=== PATIENT | female | born 1990 | race Caucasian/White ===

== ENCOUNTER 2016-12-21 17:35 | Day surgery (SDC) | payer BC, MEDICAID ==
[2016-12-21] MEDS ORDERED: Sodium Chloride 0.9% 10 ML Syringe FLUSH PRN (18:24)
--- NOTE | 2016-12-21 19:13 | EDM.PDOC ---
ED HPI GENERAL MEDICAL PROBLEM - General Chief Complaint: Gastrointestinal Problem Stated Complaint: ABDOMINAL PAIN, BLOOD IN STOOL Time Seen by Provider: 12/21/16 18:14 Source of Information: Reports: Patient History Limitations: Reports: No Limitations - History of Present Illness INITIAL COMMENTS - FREE TEXT/NARRATIVE: 26-year-old female presents for evaluation and treatment of abdominal pain. Reports abdominal pain as the last 2-3 days. States it is located on her right lower abdomen and her left upper abdomen. She states that the pain is currently an 8/10 and is a sharp stabbing that waxes and wanes. She reports associated symptoms of decreased appetite, bloating, lightheadedness and nausea. Patient reports she made a appointment with her primary care provider today. Schedule this for tomorrow. She became concerned today when she had a bloody stool this morning and second bloody stool while at work today. She denies any fevers, chills, vomiting, dysuria or hematuria. No surgeries to her abdomen. The recent travel. No ill contacts. Does not recall her last period has an IUD in place. She has had some spotting. Last intake around 1300. Lower Abdomen Pain Score (Numeric/FACES): 8 - Related Data Allergies Allergy/AdvReac Type Severity Reaction Status Date / Time No Known Allergies Allergy Verified 12/21/16 17:50 Home Meds: Home Meds . [No Known Home Meds] 12/21/16 [History] Past Medical History Gastrointestinal History: Reports: Other (See Below) Other Gastrointestinal History: "slight hernia" Psychiatric History: Reports: Anxiety, Depression - Past Surgical History GI Surgical History: Reports: Colonoscopy Social & Family History - Tobacco Use Smoking Status *Q: Light Tobacco Smoker Years of Tobacco use: 3 Packs/Tins Daily: 0.1 - Caffeine Use Caffeine Use: Reports: Soda - Recreational Drug Use Recreational Drug Use: No - Living Situation & Occupation Occupation: Employed ED ROS GENERAL - Review of Systems Review Of Systems: See Below Constitutional: Reports: Decreased Appetite. Denies: Fever, Chills GI/Abdominal: Reports: Abdominal Pain (RLQ and LUQ), Bloody Stool, Decreased Appetite, Nausea. Denies: Diarrhea, Vomiting : Reports: No Symptoms. Denies: Dysuria ED EXAM, GI/ABD - Physical Exam Exam: See Below Exam Limited By: No Limitations General Appearance: Alert, WD/WN, No Apparent Distress Respiratory/Chest: No Respiratory Distress, Lungs Clear, Normal Breath Sounds Cardiovascular: Normal Peripheral Pulses, Regular Rate, Rhythm, No Murmur GI/Abdominal: Normal Bowel Sounds, Soft, Tenderness (RLQ), Guarding, McBurney's Sign, Psoas Sign, Obturator Sign, Other (minor pain with heel percussion). No: Rebound Rectal (Female) Exam: Normal Rectal Tone, Heme + Stool Neurological: Alert, Oriented, Normal Cognition Psychiatric: Normal Affect, Normal Mood Skin Exam: Warm, Dry, Normal Color Course - Vital Signs Last Recorded V/S: Last Vital Signs Temp 36.3 C 12/21/16 21:49 Pulse 71 12/21/16 21:49 Resp 16 12/21/16 21:49 BP 121/71 12/21/16 21:49 Pulse Ox 99 12/21/16 21:49 - Orders/Labs/Meds Orders: Active Orders 24 hr Category Date Time Status Patient Status [ADT] Routine ADT 12/21/16 21:59 Active Peripheral IV Care [RC] . DIRECTED Care 12/21/16 18:24 Active Sodium Chloride 0.9% [Saline Flush] Med 12/21/16 18:24 Active 10 ml FLUSH ASDIRECTED PRN Peripheral IV Insertion Adult [OM.PC] Routine Oth 12/21/16 18:22 Ordered Schedule Procedure [COMM] Routine Oth 12/21/16 21:54 Ordered Medication Orders Sodium Chloride (Saline Flush) 10 ml FLUSH ASDIRECTED PRN PRN Reason: Keep Vein Open Last Admin: 12/21/16 18:49 Dose: 10 ml Labs: Laboratory Tests 12/21/16 12/21/16 12/21/16 Range/Units 18:50 18:50 19:41 WBC (3.98-10.04) K/mm3 RBC (3.98-5.22) M/mm3 Hgb (11.2-15.7) gm/L Hct (34.1-44.9) % MCV (79.4-94.8) fl MCH (25.6-32.2) pg MCHC (32.2-35.5) g/dl RDW Std Deviation (36.4-46.3) fL Plt Count (182-369) K/mm3 MPV (9.4-12.3) fl Neut % (Auto) (34.0-71.1) % Lymph % (Auto) (19.3-51.7) % Cole % (Auto) (4.7-12.5) % Eos % (Auto) (0.7-5.8) Baso % (Auto) (0.1-1.2) % Neut # (Auto) (1.56-6.13) K/mm3 Lymph # (Auto) (1.18-3.74) K/mm3 Cole # (Auto) (0.24-0.36) K/mm3 Eos # (Auto) (0.04-0.36) K/mm3 Baso # (Auto) (0.01-0.08) K/mm3 Sodium 139 (136-145) mEq/L Potassium 3.8 (3.5-5.1) mEq/L Chloride 105 (98-107) mEq/L Carbon Dioxide 26 (21-32) mEq/L Anion Gap 11.8 (5-15) BUN 13 (7-18) mg/dL Creatinine 0.9 (0.55-1.02) mg/dL Est Cr Clr Drug Dosing 89.45 mL/min Estimated GFR (MDRD) > 60 (>60) mL/min BUN/Creatinine Ratio 14.4 (14-18) Glucose 85 (74-106) mg/dL Calcium 9.8 (8.5-10.1) mg/dL Total Bilirubin 0.6 (0.2-1.0) mg/dL AST 23 (15-37) U/L ALT 24 (14-59) U/L Alkaline Phosphatase 111 (46-116) U/L C-Reactive Protein 2.0 H* (<1.0) mg/dL Total Protein 9.1 H (6.4-8.2) g/dl Albumin 4.1 (3.4-5.0) g/dl Globulin 5.0 gm/dL Albumin/Globulin Ratio 0.8 L (1-2) HCG, Qual Negative (NEGATIVE) Urine Color Yellow (Yellow) Urine Appearance Clear (Clear) Urine pH 6.5 (5.0-8.0) Ur Specific [place] 1.015 (1.005-1.030) Urine Protein Negative (Negative) Urine Glucose (UA) Negative (Negative) Urine Ketones Negative (Negative) Urine Occult Blood Negative (Negative) Urine Nitrite Negative (Negative) Urine Bilirubin Negative (Negative) Urine Urobilinogen 0.2 (0.2-1.0) Ur Leukocyte Esterase Negative (Negative) Urine RBC Not seen (0-5) /hpf Urine WBC Not seen (0-5) /hpf Ur Epithelial Cells 0-5 (0-5) /hpf Urine Bacteria Rare (FEW) /hpf Urine Mucus Not seen (FEW) /hpf 12/21/16 Range/Units 19:44 WBC 10.17 H (3.98-10.04) K/mm3 RBC 5.26 H (3.98-5.22) M/mm3 Hgb 14.8 (11.2-15.7) gm/L Hct 44.7 (34.1-44.9) % MCV 85.0 (79.4-94.8) fl MCH 28.1 (25.6-32.2) pg MCHC 33.1 (32.2-35.5) g/dl RDW Std Deviation 41.0 (36.4-46.3) fL Plt Count 403 H (182-369) K/mm3 MPV 9.8 (9.4-12.3) fl Neut % (Auto) 56.6 (34.0-71.1) % Lymph % (Auto) 34.6 (19.3-51.7) % Cole % (Auto) 5.6 (4.7-12.5) % Eos % (Auto) 2.7 (0.7-5.8) Baso % (Auto) 0.5 (0.1-1.2) % Neut # (Auto) 5.76 (1.56-6.13) K/mm3 Lymph # (Auto) 3.52 (1.18-3.74) K/mm3 Cole # (Auto) 0.57 H (0.24-0.36) K/mm3 Eos # (Auto) 0.27 (0.04-0.36) K/mm3 Baso # (Auto) 0.05 (0.01-0.08) K/mm3 Sodium (136-145) mEq/L Potassium (3.5-5.1) mEq/L Chloride (98-107) mEq/L Carbon Dioxide (21-32) mEq/L Anion Gap (5-15) BUN (7-18) mg/dL Creatinine (0.55-1.02) mg/dL Est Cr Clr Drug Dosing mL/min Estimated GFR (MDRD) (>60) mL/min BUN/Creatinine Ratio (14-18) Glucose (74-106) mg/dL Calcium (8.5-10.1) mg/dL Total Bilirubin (0.2-1.0) mg/dL AST (15-37) U/L ALT (14-59) U/L Alkaline Phosphatase (46-116) U/L C-Reactive Protein (<1.0) mg/dL Total Protein (6.4-8.2) g/dl Albumin (3.4-5.0) g/dl Globulin gm/dL Albumin/Globulin Ratio (1-2) HCG, Qual (NEGATIVE) Urine Color (Yellow) Urine Appearance (Clear) Urine pH (5.0-8.0) Ur Specific [place] (1.005-1.030) Urine Protein (Negative) Urine Glucose (UA) (Negative) Urine Ketones (Negative) Urine Occult Blood (Negative) Urine Nitrite (Negative) Urine Bilirubin (Negative) Urine Urobilinogen (0.2-1.0) Ur Leukocyte Esterase (Negative) Urine RBC (0-5) /hpf Urine WBC (0-5) /hpf Ur Epithelial Cells (0-5) /hpf Urine Bacteria (FEW) /hpf Urine Mucus (FEW) /hpf Meds: Medications Generic Name Dose Route Start Last Admin Trade Name Freq PRN Reason Stop Dose Admin Sodium Chloride 10 ml 12/21/16 18:24 12/21/16 18:49 Saline Flush FLUSH 10 ml ASDIRECTED PRN Administration Keep Vein Open Discontinued Medications Generic Name Dose Route Start Last Admin Trade Name Freq PRN Reason Stop Dose Admin Bupivacaine HCl Confirm 12/21/16 21:30 Marcaine 0.5% Administered 12/21/16 21:31 Dose 30 ml .ROUTE .STK-MED ONE Diatrizoate Meglum/Diatrizoate Sod 90 ml 12/21/16 19:46 12/21/16 20:00 Gastrografin 37% PO 12/21/16 19:47 90 ml ONETIME ONE Administration Fentanyl Confirm 12/21/16 21:48 Sublimaze Administered 12/21/16 21:49 Dose 250 mcg .ROUTE .STK-MED ONE Hydromorphone HCl 1 mg 12/21/16 20:53 12/21/16 21:03 Dilaudid IVPUSH 12/21/16 20:54 1 mg ONETIME ONE Administration Sodium Chloride 1,000 mls @ 999 mls/hr 12/21/16 21:02 12/21/16 21:14 Normal Saline IV 12/21/16 22:02 999 mls/hr ONETIME ONE Administration Cefoxitin Sodium 2 gm/ Premix 50 mls @ 100 mls/hr 12/21/16 21:02 12/21/16 21: 14 IV 12/21/16 21:31 100 mls/hr ONETIME ONE Administration Iopamidol 125 ml 12/21/16 19:46 12/21/16 20:00 Isovue-300 (61%) IVPUSH 12/21/16 19:47 110 ml ONETIME ONE Administration Midazolam HCl Confirm 12/21/16 21:48 Versed 1 Mg/Ml Administered 12/21/16 21:49 Dose 2 mg .ROUTE .STK-MED ONE Ondansetron HCl 4 mg 12/21/16 20:52 12/21/16 21:07 Zofran IVPUSH 12/21/16 20:53 4 mg ONETIME ONE Administration Ondansetron HCl Confirm 12/21/16 21:48 Zofran Administered 12/21/16 21:49 Dose 4 mg .ROUTE .STK-MED ONE Propofol Confirm 12/21/16 21:48 Diprivan 20 Ml Administered 12/21/16 21:49 Dose 200 mg .ROUTE .STK-MED ONE Rocuronium [place] Confirm 12/21/16 21:48 Zemuron Administered 12/21/16 21:49 Dose 50 mg .ROUTE .STK-MED ONE Sodium Chloride 10 ml 12/21/16 19:46 12/21/16 20:01 Saline Flush FLUSH 12/21/16 19:47 10 ml ONETIME ONE Administration - Radiology Interpretation Free Text/Narrative:: CT of the abdomen and pelvis impression per Dr. Galvan: 1. Slightly prominent appendix with very minimal inflammatory change suggesting but not conclusive for very early appendicitis. Please correlate if this matches patient's clinical symptoms. 2. Other portions of the CT exam of the abdomen and pelvis are unremarkable with other incidental findings. CT Results Date: 12/21/16 - Re-Assessments/Exams Free Text/Narrative Re-Assessment/Exam: 12/21/16 22:05 Labs returned. White blood cell count is mildly elevated at 10.17, hemoglobin is 14.8, plts are 239. Sodium is 139, potassium is 3.8 chloride is 105. Anion gap is 11.8. CRP is 2.0. HCG is negative. UA is unremarkable. I discussed the labs and CT results with patient. I discussed the case with Dr. Sauceda, surgeon application developer manager. He will come and evaluate the patient in the ER. Asked we start cefoxitin IV, asked we call The OR crew. Plan will be to take the patient to the OR for an appendectomy. Departure - Departure Time of Disposition: 22:00 Disposition: Refer to Observation Condition: fair Clinical Impression: Appendicitis - Discharge Information Referrals: Roselyn Warren PA [Primary Care Provider] - Forms: ED Department Discharge Additional Instructions: Patient to be taken to the OR under Dr. Sauceda for an appendectomy. - My Orders Last 24 Hours: My Active Orders 12/21/16 18:22 Peripheral IV Insertion Adult [OM.PC] Routine 12/21/16 18:24 Peripheral IV Care [RC] . DIRECTED Sodium Chloride 0.9% [Saline Flush] 10 ml FLUSH ASDIRECTED PRN 12/21/16 21:59 Patient Status [ADT] Routine - Assessment/Plan Last 24 Hours: My Active Orders 12/21/16 18:22 Peripheral IV Insertion Adult [OM.PC] Routine 12/21/16 18:24 Peripheral IV Care [RC] . DIRECTED Sodium Chloride 0.9% [Saline Flush] 10 ml FLUSH ASDIRECTED PRN 12/21/16 21:59 Patient Status [ADT] Routine
[2016-12-21] MEDS ORDERED: Diatrizoate Meglumine/Diatrizoate Sodium 37% 120 ML Bottle PO ONE (19:46)
[2016-12-21] MEDS ORDERED: Sodium Chloride 0.9% 10 ML Syringe FLUSH ONE (19:46)
[2016-12-21] MEDS ORDERED: Iopamidol 612 MG/ML 150 ML Bottle IVPUSH ONE (19:46)
--- NOTE | 2016-12-21 20:32 | CT ---
CT abdomen and pelvis Technique: Multiple axial sections from above the dome of the diaphragm inferiorly through the pubic symphysis were obtained. Intravenous and oral contrast was utilized. Delayed images were also obtained through the bladder. Findings: Appendix is slightly prominent in size measuring around 9 mm. Very minimal inflammatory change is suggested around the appendix. Very early appendicitis is possible if patient has correlating clinical symptoms. Visualized lung bases shows nothing acute. Liver and spleen appear within normal limits. Adrenal glands show no nodule. Pancreas is within normal limits. Gallbladder shows no calcified gallstones. Kidneys show symmetric contrast enhancement without hydronephrosis or mass. Delayed images shows contrast within the distal ureters and bladder. Aorta shows no aneurysmal dilatation. No retroperitoneal adenopathy is seen. Slightly prominent lymph nodes are seen within the right lower mesentery. No pelvic mass or adenopathy is seen. IUD is present within the uterus. Bone window settings were reviewed which appears within normal limits for the patient's age. Impression: 1. Slightly prominent appendix with very minimal inflammatory change suggesting but not conclusive for very early appendicitis. Please correlate if this matches patient's clinical symptoms. 2. Other portions of the CT exam of the abdomen and pelvis are unremarkable with other incidental findings as noted above. Diagnostic code #5
[2016-12-21] MEDS ORDERED: Ondansetron 4 MG/2 ML SDV IVPUSH ONE (20:52)
[2016-12-21] MEDS ORDERED: HYDROmorphone 1 MG/ML Syringe IVPUSH ONE (20:53)
[2016-12-21] MEDS ORDERED: Sodium Chloride 0.9% 1,000 ML IV ONE (21:02)
[2016-12-21] MEDS ORDERED: cefOXitin 2 GM in Premix Bag 1 BAG IV ONE (21:02)
[2016-12-21] MEDS ORDERED: Bupivacaine 0.5% 30 ML SDV ONE (21:30)
[2016-12-21] MEDS ORDERED: Rocuronium 50 MG/5 ML Vial ONE (21:48)
[2016-12-21] MEDS ORDERED: Ondansetron 4 MG/2 ML SDV ONE (21:48)
[2016-12-21] MEDS ORDERED: fentaNYL 250 MCG/5 ML SDV ONE (21:48)
[2016-12-21] MEDS ORDERED: Midazolam 1 MG/ML 2 ML SDV ONE (21:48)
[2016-12-21] MEDS ORDERED: Propofol 200 MG/20 ML SDV ONE (21:48)
--- NOTE | 2016-12-21 21:49 | PCM.PREANE ---
Preanesthetic Assessment - Anesthesia/Transfusion/Family Hx Anesthesia History: Prior Anesthesia Without Reaction Family History of Anesthesia Reaction: No Transfusion History: No Prior Transfusion(s) - Review of Systems General: Fatigue Pulmonary: No Symptoms Cardiovascular: No Symptoms Gastrointestinal: Abdominal pain Neurological: No Symptoms Other: Reports: None - Physical Assessment NPO Status Date: 12/21/16 NPO Status Time: 13:00 Pulse: 71 O2 Sat by Pulse Oximetry: 99 Respiratory Rate: 16 Blood Pressure: 121/71 Temperature: 36.3 C Vital Signs: Last Vital Signs Temp 36.3 C 12/21/16 17:44 Pulse 71 12/21/16 17:44 Resp 16 12/21/16 17:44 BP 121/71 12/21/16 17:44 Pulse Ox 99 12/21/16 17:44 Height: 1.68 m Weight: 102.058 kg ASA Class: 2 Mental Status: Alert & Oriented x3 Airway Class: Mallampati = 1 Dentition: Reports: Normal Dentition Thyro-Mental Finger Breadths: 3 Mouth Opening Finger Breadths: 3 ROM/Head Extension: Full Lungs: Clear to auscultation, Normal respiratory effort Cardiovascular: Regular Rate, Regular Rhythm, No Murmurs - Lab Values: Laboratory Last Values WBC 10.17 K/mm3 (3.98-10.04) H 12/21/16 19:44 RBC 5.26 M/mm3 (3.98-5.22) H 12/21/16 19:44 Hgb 14.8 gm/L (11.2-15.7) 12/21/16 19:44 Hct 44.7 % (34.1-44.9) 12/21/16 19:44 MCV 85.0 fl (79.4-94.8) 12/21/16 19:44 MCH 28.1 pg (25.6-32.2) 12/21/16 19:44 MCHC 33.1 g/dl (32.2-35.5) 12/21/16 19:44 RDW Std Deviation 41.0 fL (36.4-46.3) 12/21/16 19:44 Plt Count 403 K/mm3 (182-369) H 12/21/16 19:44 MPV 9.8 fl (9.4-12.3) 12/21/16 19:44 Neut % (Auto) 56.6 % (34.0-71.1) 12/21/16 19:44 Lymph % (Auto) 34.6 % (19.3-51.7) 12/21/16 19:44 [place] % (Auto) 5.6 % (4.7-12.5) 12/21/16 19:44 Eos % (Auto) 2.7 (0.7-5.8) 12/21/16 19:44 Baso % (Auto) 0.5 % (0.1-1.2) 12/21/16 19:44 Neut # (Auto) 5.76 K/mm3 (1.56-6.13) 12/21/16 19:44 Lymph # (Auto) 3.52 K/mm3 (1.18-3.74) 12/21/16 19:44 [place] # (Auto) 0.57 K/mm3 (0.24-0.36) H 12/21/16 19:44 Eos # (Auto) 0.27 K/mm3 (0.04-0.36) 12/21/16 19:44 Baso # (Auto) 0.05 K/mm3 (0.01-0.08) 12/21/16 19:44 Sodium 139 mEq/L (136-145) 12/21/16 18:50 Potassium 3.8 mEq/L (3.5-5.1) 12/21/16 18:50 Chloride 105 mEq/L (98-107) 12/21/16 18:50 Carbon Dioxide 26 mEq/L (21-32) 12/21/16 18:50 Anion Gap 11.8 (5-15) 12/21/16 18:50 BUN 13 mg/dL (7-18) 12/21/16 18:50 Creatinine 0.9 mg/dL (0.55-1.02) 12/21/16 18:50 Est Cr Clr Drug Dosing 89.45 mL/min 12/21/16 18:50 Estimated GFR (MDRD) > 60 mL/min (>60) 12/21/16 18:50 BUN/Creatinine Ratio 14.4 (14-18) 12/21/16 18:50 Glucose 85 mg/dL (74-106) 12/21/16 18:50 Calcium 9.8 mg/dL (8.5-10.1) 12/21/16 18:50 Total Bilirubin 0.6 mg/dL (0.2-1.0) 12/21/16 18:50 AST 23 U/L (15-37) 12/21/16 18:50 ALT 24 U/L (14-59) 12/21/16 18:50 Alkaline Phosphatase 111 U/L (46-116) 12/21/16 18:50 C-Reactive Protein 2.0 mg/dL (<1.0) H* 12/21/16 18:50 Total Protein 9.1 g/dl (6.4-8.2) H 12/21/16 18:50 Albumin 4.1 g/dl (3.4-5.0) 12/21/16 18:50 Globulin 5.0 gm/dL 12/21/16 18:50 Albumin/Globulin Ratio 0.8 (1-2) L 12/21/16 18:50 HCG, Qual Negative (NEGATIVE) 12/21/16 18:50 Urine Color Yellow (Yellow) 12/21/16 19:41 Urine Appearance Clear (Clear) 12/21/16 19:41 Urine pH 6.5 (5.0-8.0) 12/21/16 19:41 Ur Specific [place] 1.015 (1.005-1.030) 12/21/16 19:41 Urine Protein Negative (Negative) 12/21/16 19:41 Urine Glucose (UA) Negative (Negative) 12/21/16 19:41 Urine Ketones Negative (Negative) 12/21/16 19:41 Urine Occult Blood Negative (Negative) 12/21/16 19:41 Urine Nitrite Negative (Negative) 12/21/16 19:41 Urine Bilirubin Negative (Negative) 12/21/16 19:41 Urine Urobilinogen 0.2 (0.2-1.0) 12/21/16 19:41 Ur Leukocyte Esterase Negative (Negative) 12/21/16 19:41 Urine RBC Not seen /hpf (0-5) 12/21/16 19:41 Urine WBC Not seen /hpf (0-5) 12/21/16 19:41 Ur Epithelial Cells 0-5 /hpf (0-5) 12/21/16 19:41 Urine Bacteria Rare /hpf (FEW) 12/21/16 19:41 Urine Mucus Not seen /hpf (FEW) 12/21/16 19:41 - Allergies Allergies/Adverse Reactions: Allergies Allergy/AdvReac Type Severity Reaction Status Date / Time No Known Allergies Allergy Verified 12/21/16 17:50 - Blood Blood Available: No Product(s) Available: None - Acknowledgements Anesthesia Type Planned: General Anesthesia Pt an Appropriate Candidate for the Planned Anesthesia: Yes Alternatives and Risks of Anesthesia Discussed w Pt/Guardian: Yes Pt/Guardian Understands and Agrees with Anesthesia Plan: Yes PreAnesthesia Questionnaire Gastrointestinal History: Reports: Other (See Below) Other Gastrointestinal History: "slight hernia" Psychiatric History: Reports: Anxiety, Depression - Past Surgical History GI Surgical History: Reports: Colonoscopy - SUBSTANCE USE Smoking Status *Q: Light Tobacco Smoker Tobacco Use Within Last Twelve Months: Cigarettes Second Hand Smoke Exposure: Yes Days Per Week of Alcohol Use: 1 Number of Drinks Per Day: 1 Total Drinks Per Week: 1 Recreational Drug Use History: No - HOME MEDS Home Medications: Home Meds . [No Known Home Meds] 12/21/16 [History] - CURRENT (IN HOUSE) MEDS Current Meds: Current Medications Sodium Chloride (Normal Saline) 1,000 mls @ 999 mls/hr IV ONETIME ONE Stop: 12/21/16 22:02 Last Admin: 12/21/16 21:14 Dose: 999 mls/hr Sodium Chloride (Saline Flush) 10 ml FLUSH ASDIRECTED PRN PRN Reason: Keep Vein Open Last Admin: 12/21/16 18:49 Dose: 10 ml Discontinued Medications Bupivacaine HCl (Marcaine 0.5%) Confirm Administered Dose 30 ml .ROUTE .STK-MED ONE Stop: 12/21/16 21:31 Diatrizoate Meglum/Diatrizoate Sod (Gastrografin 37%) 90 ml PO ONETIME ONE Stop: 12/21/16 19:47 Last Admin: 12/21/16 20:00 Dose: 90 ml Fentanyl (Sublimaze) Confirm Administered Dose 250 mcg .ROUTE .STK-MED ONE Stop: 12/21/16 21:49 Hydromorphone HCl (Dilaudid) 1 mg IVPUSH ONETIME ONE Stop: 12/21/16 20:54 Last Admin: 12/21/16 21:03 Dose: 1 mg Cefoxitin Sodium 2 gm/ Premix 50 mls @ 100 mls/hr IV ONETIME ONE Stop: 12/21/16 21:31 Last Admin: 12/21/16 21:14 Dose: 100 mls/hr Iopamidol (Isovue-300 (61%)) 125 ml IVPUSH ONETIME ONE Stop: 12/21/16 19:47 Last Admin: 12/21/16 20:00 Dose: 110 ml Midazolam HCl (Versed 1 Mg/Ml) Confirm Administered Dose 2 mg .ROUTE .STK-MED ONE Stop: 12/21/16 21:49 Ondansetron HCl (Zofran) 4 mg IVPUSH ONETIME ONE Stop: 12/21/16 20:53 Last Admin: 12/21/16 21:07 Dose: 4 mg Ondansetron HCl (Zofran) Confirm Administered Dose 4 mg .ROUTE .STK-MED ONE Stop: 12/21/16 21:49 Propofol (Diprivan 20 Ml) Confirm Administered Dose 200 mg .ROUTE .STK-MED ONE Stop: 12/21/16 21:49 Rocuronium [place] (Zemuron) Confirm Administered Dose 50 mg .ROUTE .STK-MED ONE Stop: 12/21/16 21:49 Sodium Chloride (Saline Flush) 10 ml FLUSH ONETIME ONE Stop: 12/21/16 19:47 Last Admin: 12/21/16 20:01 Dose: 10 ml
[2016-12-21] MEDS ORDERED: Lactated Ringers 1,000 ML ONE (23:13)
--- NOTE | 2016-12-21 23:23 | PCM.OPNOTE ---
- General Post-Op/Procedure Note Date of Surgery/Procedure: 12/21/16 Operative Procedure(s): lap gissell Findings: acute appendicitis Pre Op Diagnosis: acute appendicitis Post-Op Diagnosis: Same Anesthesia Technique: General ET tube Primary Surgeon: Giovani Sauceda EBL in mLs: 10 Complications: None Condition: Good
[2016-12-21] MEDS ORDERED: fentaNYL 250 MCG/5 ML SDV IVPUSH PRN (23:28)
--- NOTE | 2016-12-21 23:30 | PCM.POSTAN ---
POST ANESTHESIA ASSESSMENT - MENTAL STATUS Mental Status: somnolent - VITAL SIGNS Pulse Rate: 100 SaO2: 98 Resp Rate: 16 Blood Pressure: 125/84 Temperature: 36.6 C - RESPIRATORY Respiratory Status: respiratory rate WNL, airway patent, O2 saturation stable, supplemental oxygen - CARDIOVASCULAR CV Status: pulse rate WNL, blood pressure stable - GASTROINTESTINAL GI Status: no symptoms - PAIN Pain Score: 0 - POST OP HYDRATION Hydration Status: adequate & stable - OBSERVATIONS Free Text/Narrative:: no anesthetic complications noted
[2016-12-21] MEDS: HYDROmorphone 0.5 MG/0.5 ML Syringe IVPUSH PRN ×2 (23:39→23:55)
[2016-12-21] MEDS ORDERED: fentaNYL 100 MCG/2 ML SDV ONE ×2 (23:42→23:58)
[2016-12-21] MEDS ORDERED: LORazepam 2 MG/ML MDV IVPUSH SCH (23:45)
[2016-12-22] MEDS ORDERED: Acetaminophen/HYDROcodone 325-5 MG Tab PO SCH
[2016-12-22] MEDS ORDERED: Ketorolac 30 MG/ML SDV IVPUSH ONE (02:15)
[2016-12-22] MEDS ORDERED: Acetaminophen/HYDROcodone 325-5 MG Tab PO PRN (07:53)
[2016-12-22 08:22] VITALS: BP 105/60
--- NOTE | 2016-12-22 09:03 | OR ---
DATE OF OPERATION: 12/21/2016 SURGEON: Giovani Sauceda MD PREOPERATIVE DIAGNOSIS: Acute appendicitis. POSTOPERATIVE DIAGNOSIS: Acute appendicitis. PROCEDURE: Laparoscopic appendectomy done under general anesthetic. FINDINGS: Inflamed tip of the appendix without any serious reaction. There was no peritoneal reaction around the appendix. ESTIMATED BLOOD LOSS: 10 mL. DESCRIPTION OF PROCEDURE: The patient taken to operating room for an emergency procedure from the emergency room, placed in a supine position, given the general anesthetic and intubated. SCDs were placed. Antibiotics were given and the abdomen was prepped with DuraPrep and draped off in a sterile fashion. Incision was made just below the umbilicus, carried down by sharp dissection to the fascia. This was incised, abdominal cavity entered. Thomas trocar was placed, secured with stay sutures and pneumoperitoneum established. The patient placed in reverse Trendelenburg with leftward tilt showing an inflamed appendix in the right lower quadrant. A 5-mm trocar placed in the epigastric right upper quadrant, 1 in the right lower quadrant and the grabbers were placed through these ports and the appendix was mobilized. A window was placed at the base of the cecum and mesoappendix and Ethicon endo ligator was used to separate the appendix from the cecum. Another firing of the Endo ligator the appendix from the mesoappendix, it was placed in an Endobag and removed from the abdominal cavity and sent to pathology. The camera and pneumoperitoneum re-established and the area was irrigated, excellent hemostasis was noted. This completed the intraabdominal portion of the procedure. Pneumoperitoneum was removed and the fascia of the subumbilical port closed with a running 0 Vicryl suture and the skin of each port closed with subdermal 4-0 Dexon suture. Steri-Strips and sterile dressing placed. The patient tolerated the procedure and sent to recovery room in a stable condition. OPERATION PERFORMED: ANESTHESIA: MMODAL /[id number]
--- NOTE | 2016-12-22 09:03 | HP ---
DATE OF ADMISSION: 12/21/2016 HISTORY OF PRESENT ILLNESS: This is a 26-year-old, who comes in with abdominal pain, it started 3 days ago when it was periumbilical and the 2nd day, it rotated to both sides and gradually tended to be more on the right side. The 3rd day, she was having 3 bloody bowel movements and last one was at 1600 hours and since then has not had any, but brought her into the emergency room where a CT scan showed early appendicitis. She has had poor appetite for the last 3 days. Last time she ate was at 1300 hours. The patient describes the pain as a sharp pain, which seems to be worsening. 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 Her grandfather and father both had stomach and gastric cancers. She has had a colonoscopy about a year and a half ago, not sure what was noted. She does smoke occasionally take alcohol but no use of marijuana. ALLERGIES: No known allergies. CURRENT MEDICATIONS: None. REVIEW OF SYSTEMS: No chest pain, shortness of breath, cough, hoarseness, wheezing, fainting, weakness, numbness, convulsions, nausea, vomiting, but does have a poor appetite. LABORATORY DATA: Shows a slightly elevated white count about 10.2 and elevated CPR. Urinalysis is unremarkable and test is negative. She has not had her period and has an IUD. PHYSICAL EXAMINATION: GENERAL: Reveals alert, cooperative, female. VITAL SIGNS: Shows a pulse is regular at 71, temperature 97.3, blood pressure 121/71. HEENT: Eyes sclerae white. Extraocular muscle motion normal. Oral cavity, healthy coated tongue was noted. NECK: Supple. No nodes. No thyromegaly. LUNGS: Clear. No rales, rhonchi, fremitus, or dullness. HEART: Tones regular rate. No S3, S4, jugular venous distention or murmurs. ABDOMEN : Shows tenderness in McBurney's point with slight guarding on deep palpation. EXTREMITIES: Upper and lower extremities, no angulation deformities. SKIN: Warm and dry. Neurologic exam no sensorineural deficit. Cranial nerves 3-12 is intact. EXTREMITIES: Upper and lower extremities, no angulation deformities or motor deficit. ASSESSMENT: 1. Rectal bleeding and history of Ruiz syndrome, needs to be worked up later. 2. Acute appendicitis. PLAN: Laparoscopic appendectomy. Risks and complications of this procedure was discussed, patient understands and consents. MMMIGUEL /[id number]
== END 2016-12-22 09:25 | disposition home or self-care (01) ==
LOC: JD.ED 17:35 → JD.SDS 21:54
PROVIDERS: ATTEND Surgery
DX: K35.3 Acute appendicitis with localized peritonitis (principal); K62.5 Hemorrhage of anus and rectum; F41.8 Other specified anxiety disorders; F17.210 Nicotine dependence, cigarettes, uncomplicated
CPT/HCPCS: 36415; 44970; 74177; 80053; 81001; 84703; 85025; 86140; 88304; 96365; 96375; 99285; A9270; J0694; J1170; J1885; J2060; J2250; J2405; J3010; J7040; J7050; J7120; Q9963; Q9967; 00840; 99284; J2704

== ENCOUNTER 2017-03-27 17:41 | Emergency (ER) | payer BC ==
[2017-03-27 17:54] VITALS: BP 115/74
[2017-03-27] MEDS ORDERED: Alum Hydrox/Mag Hydrox/Simeth 30 ML, Lidocaine 2% 15 ML PO ONE ×2 (20:14)
--- NOTE | 2017-03-27 20:16 | EDM.PDOC ---
ED HPI GENERAL MEDICAL PROBLEM - General Chief Complaint: Abdominal Pain Stated Complaint: ABDOMINAL PAIN Time Seen by Provider: 03/27/17 18:18 Source of Information: Reports: Patient, Old Records History Limitations: Reports: No Limitations - History of Present Illness INITIAL COMMENTS - FREE TEXT/NARRATIVE: 26 year old female presents for evaluation treatment of abdominal pain. Patient reports the abdominal pain is located in the upper abdomen. She states it is been going on for the last week. She reports that it hurts to breathe. States that the pain is located in the upper abdomen and travels interiorly into her abdomen and into her back. Reports she gets shooting pains from her bellybutton. Reports the pain is worse after eating and describes a throbbing sensation after eating. Reports associated symptoms of decreased appetite and chest pain. She denies any nausea, vomiting, melena, hematochezia, diarrhea or constipation. Last bowel movement was yesterday. Patient reports recent travel of 3-4 weeks ago she traveled to [place]. Patient reports she is healthy. Not on any medications. Has chronic back problems. 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 Reports it has been about 2 years since her last EGD and colonscopy. Previous abdominal surgeries include an appendectomy. Patient also reports a significant amount of anxiety related to her current family situation. She recognizes that this could also be contributing to her abdominal pain. Abdominal Pain Score (Numeric/FACES): 8 - Related Data Allergies Allergy/AdvReac Type Severity Reaction Status Date / Time No Known Allergies Allergy Verified 03/27/17 17:54 Home Meds: Home Meds LORazepam [Ativan] 0.5 mg PO Q6HR PRN #7 tablet 03/27/17 [Rx] Past Medical History HEENT History: Reports: Impaired Vision Gastrointestinal History: Reports: Other (See Below) Other Gastrointestinal History: "slight hernia" Psychiatric History: Reports: Anxiety, Depression - Past Surgical History GI Surgical History: Reports: Appendectomy, Colonoscopy Social & Family History - Tobacco Use Smoking Status *Q: Current Every Day Smoker Years of Tobacco use: 10 Packs/Tins Daily: 0.5 Second Hand Smoke Exposure: Yes - Caffeine Use Caffeine Use: Reports: Coffee, Energy Drinks, Soda - Alcohol Use Days Per Week of Alcohol Use: 1 Number of Drinks Per Day: 1 Total Drinks Per Week: 1 - Recreational Drug Use Recreational Drug Use: No - Living Situation & Occupation Occupation: Employed ED ROS GENERAL - Review of Systems Review Of Systems: See Below Constitutional: Reports: Fatigue, Decreased Appetite. Denies: Fever Respiratory: Reports: Pleuritic Chest Pain Cardiovascular: Reports: Chest Pain GI/Abdominal: Reports: Abdominal Pain. Denies: Constipation, Diarrhea, Hematochezia, Melena, Nausea, Vomiting : Reports: No Symptoms Musculoskeletal: Reports: Back Pain Psychiatric: Reports: Anxiety ED EXAM, GI/ABD - Physical Exam Exam: See Below Exam Limited By: No Limitations General Appearance: Alert, WD/WN, No Apparent Distress Ears: Normal External Exam Nose: Normal Inspection Throat/Mouth: Normal Inspection, Normal Lips, No Airway Compromise Respiratory/Chest: No Respiratory Distress, Lungs Clear, Normal Breath Sounds Cardiovascular: Normal Peripheral Pulses, Regular Rate, Rhythm, No Murmur GI/Abdominal Exam: Normal Bowel Sounds, Soft, Tender (greatest in the epigastric area; also RUQ and LUQ). No: Guarding, Rebound Extremities: Normal Inspection Neurological: Alert, Oriented, Normal Cognition Psychiatric: Normal Affect, Normal Mood Skin Exam: Warm, Dry, Normal Color Course - Vital Signs Last Recorded V/S: Last Vital Signs Temp 36.5 C 03/27/17 17:51 Pulse 81 03/27/17 17:51 Resp 16 03/27/17 17:51 BP 115/74 03/27/17 17:51 Pulse Ox 98 03/27/17 17:51 - Orders/Labs/Meds Labs: Laboratory Tests 03/27/17 03/27/17 03/27/17 Range/Units 18:10 18:10 18:10 WBC 7.23 (3.98-10.04) K/mm3 RBC 4.81 (3.98-5.22) M/mm3 Hgb 13.3 (11.2-15.7) gm/L Hct 40.7 (34.1-44.9) % MCV 84.6 (79.4-94.8) fl MCH 27.7 (25.6-32.2) pg MCHC 32.7 (32.2-35.5) g/dl RDW Std Deviation 40.6 (36.4-46.3) fL Plt Count 344 (182-369) K/mm3 MPV 9.5 (9.4-12.3) fl Neutrophils % (Manual) 68 H (40-60) % Band Neutrophils % 1 (0-10) % Lymphocytes % (Manual) 23 (20-40) % Atypical Lymphs % 4 % Monocytes % (Manual) 3 (2-10) % Eosinophils % (Manual) 1 (0.7-5.8) % Basophils % (Manual) 0 L (0.1-1.2) Platelet Estimate Adequate Plt Morphology Comment Normal RBC Morph Comment Normal Sodium 140 (136-145) mEq/L Potassium 3.9 (3.5-5.1) mEq/L Chloride 105 (98-107) mEq/L Carbon Dioxide 26 (21-32) mEq/L Anion Gap 12.9 (5-15) BUN 10 (7-18) mg/dL Creatinine 0.8 (0.55-1.02) mg/dL Est Cr Clr Drug Dosing TNP Estimated GFR (MDRD) > 60 (>60) mL/min BUN/Creatinine Ratio 12.5 L (14-18) Glucose 87 (74-106) mg/dL Calcium 9.0 (8.5-10.1) mg/dL Total Bilirubin 0.8 (0.2-1.0) mg/dL AST 16 (15-37) U/L ALT 21 (14-59) U/L Alkaline Phosphatase 95 (46-116) U/L C-Reactive Protein 2.6 H* (<1.0) mg/dL Total Protein 7.6 (6.4-8.2) g/dl Albumin 3.6 (3.4-5.0) g/dl Globulin 4.0 gm/dL Albumin/Globulin Ratio 0.9 L (1-2) Lipase 94 (73-393) U/L HCG, Qual Negative (NEGATIVE) Urine Color (Yellow) Urine Appearance (Clear) Urine pH (5.0-8.0) Ur Specific [place] (1.005-1.030) Urine Protein (Negative) Urine Glucose (UA) (Negative) Urine Ketones (Negative) Urine Occult Blood (Negative) Urine Nitrite (Negative) Urine Bilirubin (Negative) Urine Urobilinogen (0.2-1.0) Ur Leukocyte Esterase (Negative) Urine RBC (0-5) /hpf Urine WBC (0-5) /hpf Ur Epithelial Cells (0-5) /hpf Urine Bacteria (FEW) /hpf Urine Mucus (FEW) /hpf Urine Yeast (NOT SEEN) H. pylori IgG Antibody Negative (NEGATIVE) 03/27/17 Range/Units 18:50 WBC (3.98-10.04) K/mm3 RBC (3.98-5.22) M/mm3 Hgb (11.2-15.7) gm/L Hct (34.1-44.9) % MCV (79.4-94.8) fl MCH (25.6-32.2) pg MCHC (32.2-35.5) g/dl RDW Std Deviation (36.4-46.3) fL Plt Count (182-369) K/mm3 MPV (9.4-12.3) fl Neutrophils % (Manual) (40-60) % Band Neutrophils % (0-10) % Lymphocytes % (Manual) (20-40) % Atypical Lymphs % % Monocytes % (Manual) (2-10) % Eosinophils % (Manual) (0.7-5.8) % Basophils % (Manual) (0.1-1.2) Platelet Estimate Plt Morphology Comment RBC Morph Comment Sodium (136-145) mEq/L Potassium (3.5-5.1) mEq/L Chloride (98-107) mEq/L Carbon Dioxide (21-32) mEq/L Anion Gap (5-15) BUN (7-18) mg/dL Creatinine (0.55-1.02) mg/dL Est Cr Clr Drug Dosing Estimated GFR (MDRD) (>60) mL/min BUN/Creatinine Ratio (14-18) Glucose (74-106) mg/dL Calcium (8.5-10.1) mg/dL Total Bilirubin (0.2-1.0) mg/dL AST (15-37) U/L ALT (14-59) U/L Alkaline Phosphatase (46-116) U/L C-Reactive Protein (<1.0) mg/dL Total Protein (6.4-8.2) g/dl Albumin (3.4-5.0) g/dl Globulin gm/dL Albumin/Globulin Ratio (1-2) Lipase (73-393) U/L HCG, Qual (NEGATIVE) Urine Color Yellow (Yellow) Urine Appearance Clear (Clear) Urine pH 7.5 (5.0-8.0) Ur Specific [place] 1.025 (1.005-1.030) Urine Protein 1+ H (Negative) Urine Glucose (UA) Negative (Negative) Urine Ketones 1+ H (Negative) Urine Occult Blood Negative (Negative) Urine Nitrite Negative (Negative) Urine Bilirubin 1+ H (Negative) Urine Urobilinogen 1.0 (0.2-1.0) Ur Leukocyte Esterase Negative (Negative) Urine RBC Not seen (0-5) /hpf Urine WBC Not seen (0-5) /hpf Ur Epithelial Cells 10-20 H (0-5) /hpf Urine Bacteria Moderate H (FEW) /hpf Urine Mucus Few (FEW) /hpf Urine Yeast Not seen (NOT SEEN) H. pylori IgG Antibody (NEGATIVE) Meds: Medications Discontinued Medications Generic Name Dose Route Start Last Admin Trade Name Freq PRN Reason Stop Dose Admin Al Hydroxide/Mg Hydroxide 30 0 ml 03/27/17 20:14 03/27/17 20:29 ml/ Lidocaine HCl 15 ml PO 03/27/17 20:15 45 ml ONETIME ONE Administration - Radiology Interpretation Free Text/Narrative:: flat and upright abdominal xrays show no acute changes. - Re-Assessments/Exams Free Text/Narrative Re-Assessment/Exam: 03/27/17 20:53 Review of the patient's record shows that the abdominal pain has been going on longer than one week. She saw her PCP several weeks ago and an RUQ ultrasound was ordered but it appears she has never followed-up. I reviewed the labs and imaging with the patient. Noted minor improvement with the GI cocktail. I feel an ultrasound of the RUQ is indicated. Will order as an outpatient. I also encouraged her to get an EGD and colonscopy given her history and positive genetic testing. In the meantime, we will try medication for anxiety and I will have her follow- up with her PCP. Discharge instructions as documented. Departure - Departure Time of Disposition: 20:56 Disposition: Home, Self-Care 01 Condition: Fair Clinical Impression: Anxiety, Nausea & vomiting, Abdominal pain - Discharge Information Prescriptions: LORazepam [Ativan] 0.5 mg PO Q6HR PRN #7 tablet PRN Reason: Anxiety Instructions: Abdominal Pain, Adult, [id number], Nausea, Adult, [id number] Referrals: PCP,None [Primary Care Provider] - Roselyn Warren PA [Physician Public Welfare Worker] - Forms: ED Department Discharge Additional Instructions: take the ativan as prescribed 1 tab PO every 4-6 hours as needed for anxiety. Ativan can be sedating, do not drive drive or operate machinery within 12 hours of ativan. Call Tuesday to schedule ultrasound of the gallbladder. Call [phone] and asked to speak radiology to schedule. Follow-up with Roselyn Warren within 1-2 weeks for ultrasound results and ER follow-up. Avoid fatty foods. Please return to the ER should your symptoms change or worsen.
--- NOTE | 2017-03-31 08:18 | CR ---
Abdomen: Supine and upright views of the abdomen were obtained. Comparison: No previous abdominal x-ray. IUD is present within the pelvis. Bowel gas pattern is normal. No free air is seen. No abnormal calcifications or soft tissue abnormality is seen. Bony structures are unremarkable. Impression: 1. IUD. 2. No additional findings are seen on two-view abdominal x-ray. Diagnostic code #2
== END 2017-03-27 21:05 | disposition home or self-care (01) ==
LOC: JD.ED 17:41
DX: F41.9 Anxiety disorder, unspecified (principal); R11.2 Nausea with vomiting, unspecified; R10.10 Upper abdominal pain, unspecified; F17.210 Nicotine dependence, cigarettes, uncomplicated; Z90.49 Acquired absence of other specified parts of digestive tract
CPT/HCPCS: 36415; 74020; 80053; 81001; 83690; 84703; 85025; 86140; 86677; 99284; A9270

== ENCOUNTER 2017-05-04 09:40 | Day surgery (SDC) | payer BC ==
[~2017-05-04 09:40] MED LIST: Lactated Ringers 1,000 ML IV SCH; Lidocaine 1%/Sod Bicarbonate in NS 8.4% 1 ML Syringe IV PRN; Lidocaine 1%/Sod Bicarbonate in NS 8.4% 1 ML Syringe PRN; Sodium Chloride 0.9% 10 ML Syringe FLUSH PRN
[2017-05-04] MEDS ORDERED: Propofol 200 MG/20 ML SDV ONE (09:45)
[2017-05-04] MEDS ORDERED: fentaNYL 100 MCG/2 ML SDV ONE (09:45)
--- NOTE | 2017-05-04 09:51 | PCM.PREANE ---
Preanesthetic Assessment - Procedure Proposed Procedure: diag colonoscopy and diag egd - Anesthesia/Transfusion/Family Hx Anesthesia History: Prior Anesthesia Without Reaction Family History of Anesthesia Reaction: No Transfusion History: No Prior Transfusion(s) - Review of Systems General: No Symptoms Pulmonary: No Symptoms Cardiovascular: No Symptoms Gastrointestinal: No Symptoms Neurological: No Symptoms Other: Reports: Anxiety - Physical Assessment NPO Status Date: 05/03/17 NPO Status Time: 23:30 Pulse: 63 O2 Sat by Pulse Oximetry: 96 Respiratory Rate: 16 Blood Pressure: 114/61 Temperature: 98.6 F Height: 5 ft 6 in Weight: 97.069 kg ASA Class: 2 Mental Status: Alert & Oriented x3 Airway Class: Mallampati = 1 Dentition: Reports: Normal Dentition Thyro-Mental Finger Breadths: 3 Mouth Opening Finger Breadths: 3 ROM/Head Extension: Full Lungs: Clear to Auscultation, Normal Respiratory Effort Cardiovascular: Regular Rate, Regular Rhythm - Allergies Allergies/Adverse Reactions: Allergies Allergy/AdvReac Type Severity Reaction Status Date / Time No Known Allergies Allergy Verified 05/03/17 16:05 - Blood Blood Available: No - Acknowledgements Anesthesia Type Planned: MAC Pt an Appropriate Candidate for the Planned Anesthesia: Yes Alternatives and Risks of Anesthesia Discussed w Pt/Guardian: Yes Pt/Guardian Understands and Agrees with Anesthesia Plan: Yes PreAnesthesia Questionnaire HEENT History: Reports: Impaired Vision, Other (See Below) Other HEENT History: wears glasses Gastrointestinal History: Reports: Other (See Below) Other Gastrointestinal History: "slight hernia", , nelson syndrom,, Genitourinary History: Reports: None [employer] 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: Other (See Below) Other OB/BYN History: pelvic pain, vaginal discharge, uterine cramping Musculoskeletal History: Reports: None Neurological History: Reports: None Psychiatric History: Reports: Anxiety, OCD Endocrine/Metabolic History: Reports: None, Obesity/BMI 30+ Hematologic History: Reports: None Immunologic History: Reports: None Oncologic (Cancer) History: Reports: None Dermatologic History: Reports: None - Past Surgical History Head Surgeries/Procedures: Reports: None GI Surgical History: Reports: Appendectomy, Colonoscopy Female Surgical History: Reports: None Male Surgical History: Reports: None Endocrine Surgical History: Reports: None Neurological Surgical History: Reports: None Musculoskeletal Surgical History: Reports: None Oncologic Surgical History: Reports: None - SUBSTANCE USE Smoking Status *Q: Current Every Day Smoker Tobacco Use Within Last Twelve Months: Cigarettes Second Hand Smoke Exposure: Yes Days Per Week of Alcohol Use: 1 (occasional) Number of Drinks Per Day: 1 Total Drinks Per Week: 1 Recreational Drug Use History: No - HOME MEDS Home Medications: Home Meds LORazepam [Ativan] 0.5 mg PO Q6HR PRN #7 tablet 03/27/17 [Rx] Citalopram [Celexa] 20 mg PO DAILY 05/03/17 [History] - CURRENT (IN HOUSE) MEDS Current Meds: Current Medications Lactated Ringer's (Ringers, Lactated) 1,000 mls @ 125 mls/hr IV ASDIRECTED JIGAR Stop: 05/04/17 23:00 Lidocaine/Sodium Bicarbonate (Buffered Lidocaine 1% In Ns 8.4%) 0.25 ml .XX ONETIME PRN PRN Reason: Prior to IV Start Stop: 05/04/17 18:00 Sodium Chloride (Saline Flush) 10 ml FLUSH ASDIRECTED PRN PRN Reason: Keep Vein Open Stop: 05/04/17 18:00 Discontinued Medications Fentanyl (Sublimaze) Confirm Administered Dose 100 mcg .ROUTE .STK-MED ONE Stop: 05/04/17 09:46 Lactated Ringer's (Ringers, Lactated) 1,000 mls @ 125 mls/hr IV ASDIRECTED [facility] Stop: 10/20/16 23:00 Lidocaine/Sodium Bicarbonate (Buffered Lidocaine 1% In Ns 8.4%) 0.25 ml IV ONETIME PRN PRN Reason: Prior to IV Start Stop: 10/20/16 18:00 Propofol (Diprivan 20 Ml) Confirm Administered Dose 200 mg .ROUTE .STK-MED ONE Stop: 05/04/17 09:46 Sodium Chloride (Saline Flush) 10 ml FLUSH ASDIRECTED PRN PRN Reason: Keep Vein Open Stop: 10/20/16 18:00
--- NOTE | 2017-05-04 11:14 | PCM48HPAN ---
Post Anesthesia Note - EVALUATION WITHIN 48HRS OF ANESTHETIC Vital Signs in Normal Range: Yes Patient Participated in Evaluation: Yes Respiratory Function Stable: Yes Airway Patent: Yes Cardiovascular Function Stable: Yes Hydration Status Stable: Yes Pain Control Satisfactory: Yes Nausea and Vomiting Control Satisfactory: Yes Mental Status Recovered: Yes
--- NOTE | 2017-05-04 11:15 | PCM.OPNOTE ---
- General Post-Op/Procedure Note Date of Surgery/Procedure: 05/04/17 Operative Procedure(s): 1. Esophagogastroduodenoscopy. 2. Colonoscopy with cold forceps cecal biopsy 1 Findings: 1. Normal upper endoscopy with prominent Vidal's glands of the duodenum 2. 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 Through a bite-block lubricated upper endoscope was inserted into the esophagus then advanced under direct vision to the stomach. Additional air was given here. The antrum was identified followed by passage of the scope into the second part of the duodenum. There were prominent Vidal's glands present within the duodenum. The second and first parts were endoscopically normal. The antrum, body, and fundic regions were normal as well. There was no hiatal hernia. The GE junction was sharp and endoscopically normal. The body of the esophagus was unremarkable. The vocal cords were briefly visualized on extubation and were grossly normal. Photographs were taken for the patient and for the medical record. Air was removed as I finished this aspect of the procedure which she tolerated well. Perianal inspection and digital rectal examination were performed next and were unremarkable. The sphincter tone was normal. A lubricated colonoscope was inserted into the rectum and advanced under direct vision to the cecum which was identified. The bowel preparation was excellent. The cecum had a few tannish brown flat 5 mm pigmented areas which were endoscopically benign but I performed a random biopsy with cold forceps 1 for histologic evaluation. The ascending, transverse and descending colons were endoscopically normal with no mass lesions or inflammatory changes seen. The sigmoid colon was unremarkable as well. The proximal rectum was endoscopically normal. The retroflexed view was normal as well. Air was removed as I finished this component of the both procedures. Photographs taken for the patient and for the medical record.
[2017-05-04 11:20] VITALS: BP 91/44
== END 2017-05-04 11:47 | disposition home or self-care (01) ==
LOC: JD.SDS 09:40
PROVIDERS: ATTEND Surgery
DX: Z15.09 Genetic susceptibility to other malignant neoplasm (principal); Z80.0 Family history of malignant neoplasm of digestive organs; F41.9 Anxiety disorder, unspecified; F32.9 Major depressive disorder, single episode, unspecified; E66.9 Obesity, unspecified; F60.5 Obsessive-compulsive personality disorder; Z79.899 Other long term (current) drug therapy; F17.210 Nicotine dependence, cigarettes, uncomplicated; Z68.30 Body mass index [BMI] 30.0-30.9, adult; Z90.49 Acquired absence of other specified parts of digestive tract; Z98.890 Other specified postprocedural states
CPT/HCPCS: 43235; 45380; 81025; J3010; J7120; 00810; J2704

== ENCOUNTER 2017-07-03 13:44 | Emergency (ER) | payer BC ==
[2017-07-03 14:02] VITALS: BP 108/68
--- NOTE | 2017-07-03 14:02 | EDM.PDOC ---
ED HPI GENERAL MEDICAL PROBLEM - General Chief Complaint: Gastrointestinal Problem Stated Complaint: THROWING UP FOR 2 WEKS, STOMACH PAIN Time Seen by Provider: 07/03/17 14:00 - History of Present Illness INITIAL COMMENTS - FREE TEXT/NARRATIVE: 26-year-old female presents emergency room with a whole host of symptoms. Patient complains of intermittent nausea and vomiting she may throw up at least once a day this usually follows eating. She has had intermittent abdominal cramps. She complains of lots of fatigue and being tired all the time. She has been under incredible amount of stress. Patient started a new job several months ago. She's been evaluated with a EGD and colonoscopy in the past these have been unremarkable. She is not taking any stomach medication at this time. She denies fevers or chills. At this time she has no specific complaints she did work last night awoke around 1:00 this morning had some discomfort drink water he had M&Ms as her initial meal. 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 (See Below) Other OB/BYN History: pelvic pain, vaginal discharge, uterine cramping Musculoskeletal History: Reports: None Neurological History: Reports: None Psychiatric History: Reports: Anxiety, OCD Endocrine/Metabolic History: Reports: None, Obesity/BMI 30+ Hematologic History: Reports: None Immunologic History: Reports: None Oncologic (Cancer) History: Reports: None Dermatologic History: Reports: None - Past Surgical History Head Surgeries/Procedures: Reports: None GI Surgical History: Reports: Appendectomy, Colonoscopy Female Surgical History: Reports: None Male Surgical History: Reports: None Endocrine Surgical History: Reports: None Neurological Surgical History: Reports: None Musculoskeletal Surgical History: Reports: None Oncologic Surgical History: Reports: None Social & Family History - Tobacco Use Smoking Status *Q: Current Every Day Smoker Years of Tobacco use: 10 Packs/Tins Daily: 0.5 Second Hand Smoke Exposure: Yes - Caffeine Use Caffeine Use: Reports: Coffee, Energy Drinks, Soda - Alcohol Use Days Per Week of Alcohol Use: 1 (occasional) Number of Drinks Per Day: 1 Total Drinks Per Week: 1 - Recreational Drug Use Recreational Drug Use: No - Living Situation & Occupation Occupation: Employed ED ROS GENERAL - Review of Systems Review Of Systems: See Below Constitutional: Reports: No Symptoms. Denies: Fever, Chills HEENT: Reports: No Symptoms Respiratory: Reports: No Symptoms Cardiovascular: Reports: No Symptoms Endocrine: Reports: Fatigue. Denies: Polydypsia, Polyuria GI/Abdominal: Reports: Abdominal Pain, Nausea, Vomiting. Denies: Constipation, Diarrhea : Reports: No Symptoms ED EXAM, GI/ABD - Physical Exam Exam: See Below Exam Limited By: No Limitations General Appearance: Alert, No Apparent Distress Head: Atraumatic, Normocephalic Neck: Normal Inspection, Supple, Non-Tender. No: Lymphadenopathy (L), Lymphadenopathy (R), Thyromegaly Respiratory/Chest: No Respiratory Distress, Lungs Clear Cardiovascular: Regular Rate, Rhythm, No Edema, No Murmur GI/Abdominal Exam: Normal Bowel Sounds, Soft, No Distention, Tender (She has some vague nonspecific nonlocalizing tenderness). No: Non-Tender, Distended, Guarding, Rigid, Rebound Back Exam: Normal Inspection. No: CVA Tenderness (L), CVA Tenderness (R) Extremities: Normal Inspection, No Pedal Edema Course - Vital Signs Last Recorded V/S: Last Vital Signs Temp 36.4 C 07/03/17 13:53 Pulse 62 07/03/17 13:53 Resp 16 07/03/17 13:53 BP 108/68 07/03/17 13:53 Pulse Ox 98 07/03/17 13:53 - Orders/Labs/Meds Labs: Laboratory Tests 07/03/17 07/03/17 07/03/17 Range/Units 14:35 14:35 14:45 WBC 7.86 (3.98-10.04) K/mm3 RBC 4.94 (3.98-5.22) M/mm3 Hgb 14.0 (11.2-15.7) gm/L Hct 43.2 (34.1-44.9) % MCV 87.4 (79.4-94.8) fl MCH 28.3 (25.6-32.2) pg MCHC 32.4 (32.2-35.5) g/dl RDW Std Deviation 44.0 (36.4-46.3) fL Plt Count 341 (182-369) K/mm3 MPV 9.8 (9.4-12.3) fl Neutrophils % (Manual) 67 H (40-60) % Band Neutrophils % 0 (0-10) % Lymphocytes % (Manual) 21 (20-40) % Atypical Lymphs % 2 % Monocytes % (Manual) 2 (2-10) % Eosinophils % (Manual) 6 H (0.7-5.8) % Basophils % (Manual) 2 H (0.1-1.2) Platelet Estimate Adequate Plt Morphology Comment Normal RBC Morph Comment Normal Sodium (136-145) mEq/L Potassium (3.5-5.1) mEq/L Chloride (98-107) mEq/L Carbon Dioxide (21-32) mEq/L Anion Gap (5-15) BUN (7-18) mg/dL Creatinine (0.55-1.02) mg/dL Est Cr Clr Drug Dosing mL/min Estimated GFR (MDRD) (>60) mL/min BUN/Creatinine Ratio (14-18) Glucose (74-106) mg/dL Calcium (8.5-10.1) mg/dL Total Bilirubin (0.2-1.0) mg/dL AST (15-37) U/L ALT (14-59) U/L Alkaline Phosphatase (46-116) U/L Total Protein (6.4-8.2) g/dl Albumin (3.4-5.0) g/dl Globulin gm/dL Albumin/Globulin Ratio (1-2) Lipase (73-393) U/L TSH 3rd Generation (0.358-3.74) uIU/mL Urine Color Yellow (Yellow) Urine Appearance Clear (Clear) Urine pH 7.0 (5.0-8.0) Ur Specific [place] 1.025 (1.005-1.030) Urine Protein Negative (Negative) Urine Glucose (UA) Negative (Negative) Urine Ketones Negative (Negative) Urine Occult Blood Negative (Negative) Urine Nitrite Negative (Negative) Urine Bilirubin Negative (Negative) Urine Urobilinogen 0.2 (0.2-1.0) Ur Leukocyte Esterase Negative (Negative) Urine RBC Not seen (0-5) /hpf Urine WBC 0-5 (0-5) /hpf Ur Epithelial Cells 0-5 (0-5) /hpf Urine Bacteria Few (FEW) /hpf Urine Mucus Moderate H (FEW) /hpf Urine HCG, Qual Negative (NEGATIVE) 07/03/17 Range/Units 14:45 WBC (3.98-10.04) K/mm3 RBC (3.98-5.22) M/mm3 Hgb (11.2-15.7) gm/L Hct (34.1-44.9) % MCV (79.4-94.8) fl MCH (25.6-32.2) pg MCHC (32.2-35.5) g/dl RDW Std Deviation (36.4-46.3) fL Plt Count (182-369) K/mm3 MPV (9.4-12.3) fl Neutrophils % (Manual) (40-60) % Band Neutrophils % (0-10) % Lymphocytes % (Manual) (20-40) % Atypical Lymphs % % Monocytes % (Manual) (2-10) % Eosinophils % (Manual) (0.7-5.8) % Basophils % (Manual) (0.1-1.2) Platelet Estimate Plt Morphology Comment RBC Morph Comment Sodium 142 (136-145) mEq/L Potassium 3.8 (3.5-5.1) mEq/L Chloride 107 (98-107) mEq/L Carbon Dioxide 25 (21-32) mEq/L Anion Gap 13.8 (5-15) BUN 9 (7-18) mg/dL Creatinine 0.9 (0.55-1.02) mg/dL Est Cr Clr Drug Dosing 89.45 mL/min Estimated GFR (MDRD) > 60 (>60) mL/min BUN/Creatinine Ratio 10.0 L (14-18) Glucose 96 (74-106) mg/dL Calcium 9.1 (8.5-10.1) mg/dL Total Bilirubin 0.7 (0.2-1.0) mg/dL AST 13 L (15-37) U/L ALT 16 (14-59) U/L Alkaline Phosphatase 89 (46-116) U/L Total Protein 7.5 (6.4-8.2) g/dl Albumin 3.5 (3.4-5.0) g/dl Globulin 4.0 gm/dL Albumin/Globulin Ratio 0.9 L (1-2) Lipase 100 (73-393) U/L TSH 3rd Generation 1.234 (0.358-3.74) uIU/mL Urine Color (Yellow) Urine Appearance (Clear) Urine pH (5.0-8.0) Ur Specific [place] (1.005-1.030) Urine Protein (Negative) Urine Glucose (UA) (Negative) Urine Ketones (Negative) Urine Occult Blood (Negative) Urine Nitrite (Negative) Urine Bilirubin (Negative) Urine Urobilinogen (0.2-1.0) Ur Leukocyte Esterase (Negative) Urine RBC (0-5) /hpf Urine WBC (0-5) /hpf Ur Epithelial Cells (0-5) /hpf Urine Bacteria (FEW) /hpf Urine Mucus (FEW) /hpf Urine HCG, Qual (NEGATIVE) - Re-Assessments/Exams Free Text/Narrative Re-Assessment/Exam: 07/03/17 16:08 Laboratory evaluation is entirely unremarkable. Discussed the findings of this with the patient who believes a lot of her symptoms are probably related to stress. I have recommended that she start Pepcid [id number] 20 mg 1 twice a day for 1 week then once daily thereafter and see if this helps she should also follow-up with her regular provider later this week for recheck. Departure - Departure Time of Disposition: 16:08 Disposition: Home, Self-Care 01 Clinical Impression: Abdominal discomfort - Discharge Information Referrals: Roselyn Warren PA [Primary Care Provider] - Forms: ED Department Discharge Additional Instructions: Return to the emergency room with any questions problems or worsening symptoms. Return if not improving in 24-48 hours sooner if getting worse. Try Pepcid, or famotidine, 20 mg twice daily. This is [id number]. Take this for 1 week and then decrease it to once daily. Follow-up in the clinic on Tuesday or for recheck.
== END 2017-07-03 16:20 | disposition home or self-care (01) ==
LOC: JD.ED 13:44
DX: R10.9 Unspecified abdominal pain (principal); F17.210 Nicotine dependence, cigarettes, uncomplicated
CPT/HCPCS: 36415; 80053; 81001; 81025; 83690; 84443; 85025; 99283; 99284

== ENCOUNTER 2017-09-27 15:15 | Emergency (ER) | payer BC ==
[2017-09-27 15:33] VITALS: BP 118/78
[2017-09-27] MEDS ORDERED: Sodium Chloride 0.9% 1,000 ML IV ONE (16:33)
[2017-09-27] MEDS ORDERED: Sodium Chloride 0.9% 10 ML Syringe FLUSH PRN (16:34)
[2017-09-27] MEDS ORDERED: Ondansetron 4 MG/2 ML SDV IVPUSH ONE (16:35)
--- NOTE | 2017-09-27 16:59 | EDM.PDOCBH ---
ED HPI GENERAL MEDICAL PROBLEM - General Chief Complaint: Gastrointestinal Problem Stated Complaint: TROUBLE EATING,DRINKING AND MAKING DECISIONS Time Seen by Provider: 09/27/17 16:00 Source of Information: Reports: Patient (Limited), Family (Mother) History Limitations: Reports: Other (Patient is Lethargic and has a hard time answering questions) - History of Present Illness INITIAL COMMENTS - FREE TEXT/NARRATIVE: 27-year-old female comes in today with mom complaining of trouble eating, drinking, and making decisions. Patient is thought blocking and is difficult to get a history from. Her mom says these issues have been going on for one month with the last week being the worst. Mom states patient had half of a yogurt this morning and less than a cup of water this morning. Mom works night monitor so she is not sure what the patient is eating while she is away, but patient states she has not been eating or drinking very much. She states she had half a burrito last night. Currently, patient states that she is slightly hungry but she just does not want to eat or drink. She states that there is a lot of stress going on and she feels that she is "trying to get back on my feet again" . Patient states that she is sad but does not admit to being depressed. Her mom states she has been experiencing a decrease in interest in things that she used to like such as music and clothing. Per mom, she may be stressed out because she recently had a breakup with her boyfriend and her sister is in the hospital. Patient denies any kind of suicidal ideation or plan or homicidal ideation. There is a family history of both depression and anxiety. The patient has seen a psychologist in the past and per mom was taking some sort of anxiety medication which she no longer takes. Mom states they have a appointment with a psychologist this with the last time she saw a psychologist being in June 2017. Patient states that seen a psychologist does not really help but she is interested in talking to somebody. Regarding symptoms, patient states she has some nausea, dizziness, and feels lethargic but denies any kind of vomiting, diarrhea, constipation, dysuria, fever, chills, chest pain or trouble breathing. Siomara Garay PA-C I've taken over for Siomara and agree with with her history of present illness. Additionally they shared with me that she was admitted for inpatient psychiatric treatment about 5 years ago after a similar episode. She denies to me any suicidal ideation or any homicidal ideation or plan. She does feel that she is depression anxious. She states that she has trouble with sleep as she has ruminating thoughts. She states that she does feel hungry but just does not seem to have the motivation to eat. Patient denies any drug or alcohol use. Patient was with her boyfriend whom she broke up with several months ago. She since has moved in with her mother. Bee Anderson PA-C - Related Data Allergies Allergy/AdvReac Type Severity Reaction Status Date / Time No Known Allergies Allergy Verified 09/28/17 15:27 Home Meds: Home Meds Escitalopram [Lexapro] 10 mg PO DAILY #30 tab 09/27/17 [Rx] LORazepam [Ativan] 0.5 mg PO ASDIRECTED PRN #12 tablet 09/27/17 [Rx] Ondansetron [Zofran ODT] 4 mg PO Q6H PRN #15 tab.dis 09/27/17 [Rx] Past Medical History HEENT History: Reports: Impaired Vision, Other (See Below) Other HEENT History: wears glasses Cardiovascular History: Reports: Other (See Below) Other Cardiovascular History: chest pain Respiratory History: Reports: Other (See Below) Other Respiratory History: dyspnea Gastrointestinal History: Reports: Other (See Below) Other Gastrointestinal History: "slight hernia", , nelson syndrom,, Genitourinary History: Reports: None 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: Reports: Other (See Below) Other OB/BYN History: pelvic pain, vaginal discharge, uterine cramping Musculoskeletal History: Reports: None Neurological History: Reports: None Psychiatric History: Reports: Anxiety, OCD Endocrine/Metabolic History: Reports: None, Obesity/BMI 30+ Hematologic History: Reports: None Immunologic History: Reports: None Oncologic (Cancer) History: Reports: None Dermatologic History: Reports: None - Past Surgical History Head Surgeries/Procedures: Reports: None GI Surgical History: Reports: Appendectomy, Colonoscopy Female Surgical History: Reports: None Endocrine Surgical History: Reports: None Neurological Surgical History: Reports: None Musculoskeletal Surgical History: Reports: None Oncologic Surgical History: Reports: None Social & Family History - Tobacco Use Smoking Status *Q: Current Every Day Smoker Years of Tobacco use: 6 Packs/Tins Daily: 0.3 Second Hand Smoke Exposure: Yes - Caffeine Use Caffeine Use: Reports: Coffee, Energy Drinks, Soda - Alcohol Use Days Per Week of Alcohol Use: 1 (occasional) Number of Drinks Per Day: 1 Total Drinks Per Week: 1 - Recreational Drug Use Recreational Drug Use: No - Living Situation & Occupation Occupation: Employed ED ROS GENERAL - Review of Systems Review Of Systems: See Below Constitutional: Reports: Malaise, Fatigue, Decreased Appetite. Denies: Fever, Chills Respiratory: Denies: Shortness of Breath, Pleuritic Chest Pain Cardiovascular: Denies: Chest Pain, Palpitations Endocrine: Reports: Fatigue GI/Abdominal: Reports: Decreased Appetite. Denies: Abdominal Pain, Constipation , Diarrhea, Difficulty Swallowing Skin: Reports: Dryness (Lips) Psychiatric: Reports: Agitation, Anxiety, Depression, Other (Thought blocking; denies manic episodes). Denies: Homicidal Ideation, Suicidal Ideation ED EXAM, BEHAVIORAL HEALTH - Physical Exam Exam: See Below Exam Limited By: Other (Elusive, vague) General Appearance: Alert, WD/WN, Mild Distress Eye Exam: Bilateral Eye: Normal Inspection Ears: Normal External Exam Nose: Normal Inspection Throat/Mouth: Normal Inspection Head: Atraumatic, Normocephalic Neck: Normal Inspection Respiratory/Chest: No Respiratory Distress, Lungs Clear, Normal Breath Sounds Cardiovascular: Normal Peripheral Pulses, Regular Rate, Rhythm GI/Abdominal: Normal Bowel Sounds, Soft, Non-Tender, No Organomegaly, No Distention Neurological: Alert Psychiatric: Alert, Depressed Mood, Flat Affect, Tearful, Non-Communicative, Poor Eye Contact, Withdrawn, Threatening Behavior (not eating or drinking). No : Homicidal Thoughts, Suicidal Plan, Suicidal Thoughts Skin Exam: Warm, Dry, Intact, Normal color COURSE, BEHAVIORAL HEALTH COMP - Course Vital Signs: Last Vital Signs Temp 36.7 C 09/27/17 15:29 Pulse 60 09/27/17 15:29 Resp 18 09/27/17 15:29 BP 118/78 09/27/17 15:29 Pulse Ox 100 09/27/17 15:29 Orthostatic Blood Pressure [ 120/82 Standing] Orthostatic Blood Pressure [ 121/80 Supine] Orders, Labs, Meds: Laboratory Tests 09/27/17 09/27/17 09/27/17 Range/Units 17:12 17:12 17:12 WBC 7.52 (3.98-10.04) K/mm3 RBC 5.19 (3.98-5.22) M/mm3 Hgb 14.8 (11.2-15.7) gm/L Hct 45.3 H (34.1-44.9) % MCV 87.3 (79.4-94.8) fl MCH 28.5 (25.6-32.2) pg MCHC 32.7 (32.2-35.5) g/dl RDW Std Deviation 42.6 (36.4-46.3) fL Plt Count 343 (182-369) K/mm3 MPV 10.3 (9.4-12.3) fl Neut % (Auto) 63.1 (34.0-71.1) % Lymph % (Auto) 29.9 (19.3-51.7) % [place] % (Auto) 6.0 (4.7-12.5) % Eos % (Auto) 0.7 (0.7-5.8) Baso % (Auto) 0.3 (0.1-1.2) % Neut # (Auto) 4.75 (1.56-6.13) K/mm3 Lymph # (Auto) 2.25 (1.18-3.74) K/mm3 [place] # (Auto) 0.45 H (0.24-0.36) K/mm3 Eos # (Auto) 0.05 (0.04-0.36) K/mm3 Baso # (Auto) 0.02 (0.01-0.08) K/mm3 Sodium 143 (136-145) mEq/L Potassium 4.3 (3.5-5.1) mEq/L Chloride 103 (98-107) mEq/L Carbon Dioxide 26 (21-32) mEq/L Anion Gap 18.3 H (5-15) BUN 10 (7-18) mg/dL Creatinine 0.8 (0.55-1.02) mg/dL Est Cr Clr Drug Dosing 99.76 mL/min Estimated GFR (MDRD) > 60 (>60) mL/min BUN/Creatinine Ratio 12.5 L (14-18) Glucose 88 (74-106) mg/dL Calcium 9.9 (8.5-10.1) mg/dL Total Bilirubin 1.4 H (0.2-1.0) mg/dL AST 17 (15-37) U/L ALT 25 (14-59) U/L Alkaline Phosphatase 102 (46-116) U/L Total Protein 8.4 H (6.4-8.2) g/dl Albumin 4.2 (3.4-5.0) g/dl Globulin 4.2 gm/dL Albumin/Globulin Ratio 1.0 (1-2) TSH 3rd Generation 1.229 (0.358-3.74) uIU/mL Urine Color (Yellow) Urine Appearance (Clear) Urine pH (5.0-8.0) Ur Specific [place] (1.005-1.030) Urine Protein (Negative) Urine Glucose (UA) (Negative) Urine Ketones (Negative) Urine Occult Blood (Negative) Urine Nitrite (Negative) Urine Bilirubin (Negative) Urine Urobilinogen (0.2-1.0) Ur Leukocyte Esterase (Negative) Urine RBC (0-5) /hpf Urine WBC (0-5) /hpf Ur Epithelial Cells (0-5) /hpf Urine Bacteria (FEW) /hpf Urine Mucus (FEW) /hpf Urine HCG, Qual (NEGATIVE) Salicylates (2.8-20) mg/dL Urine Opiates Screen (NEGATIVE) Ur Buprenorphine Scrn (NEGATIVE) Ur Oxycodone Screen (NEGATIVE) Urine Methadone Screen (NEGATIVE) Ur Propoxyphene Screen (NEGATIVE) Acetaminophen 0 L (10-30) ug/mL Ur Barbiturates Screen (NEGATIVE) Ur Tricyclics Screen (NEGATIVE) Ur Phencyclidine Scrn (NEGATIVE) Ur Amphetamine Screen (NEGATIVE) U Methamphetamines Scrn (NEGATIVE) U Benzodiazepines Scrn (NEGATIVE) U Cocaine Metab Screen (NEGATIVE) U Marijuana (THC) Screen (NEGATIVE) 09/27/17 09/27/17 09/27/17 Range/Units 17:12 17:15 17:15 WBC (3.98-10.04) K/mm3 RBC (3.98-5.22) M/mm3 Hgb (11.2-15.7) gm/L Hct (34.1-44.9) % MCV (79.4-94.8) fl MCH (25.6-32.2) pg MCHC (32.2-35.5) g/dl RDW Std Deviation (36.4-46.3) fL Plt Count (182-369) K/mm3 MPV (9.4-12.3) fl Neut % (Auto) (34.0-71.1) % Lymph % (Auto) (19.3-51.7) % [place] % (Auto) (4.7-12.5) % Eos % (Auto) (0.7-5.8) Baso % (Auto) (0.1-1.2) % Neut # (Auto) (1.56-6.13) K/mm3 Lymph # (Auto) (1.18-3.74) K/mm3 [place] # (Auto) (0.24-0.36) K/mm3 Eos # (Auto) (0.04-0.36) K/mm3 Baso # (Auto) (0.01-0.08) K/mm3 Sodium (136-145) mEq/L Potassium (3.5-5.1) mEq/L Chloride (98-107) mEq/L Carbon Dioxide (21-32) mEq/L Anion Gap (5-15) BUN (7-18) mg/dL Creatinine (0.55-1.02) mg/dL Est Cr Clr Drug Dosing mL/min Estimated GFR (MDRD) (>60) mL/min BUN/Creatinine Ratio (14-18) Glucose (74-106) mg/dL Calcium (8.5-10.1) mg/dL Total Bilirubin (0.2-1.0) mg/dL AST (15-37) U/L ALT (14-59) U/L Alkaline Phosphatase (46-116) U/L Total Protein (6.4-8.2) g/dl Albumin (3.4-5.0) g/dl Globulin gm/dL Albumin/Globulin Ratio (1-2) TSH 3rd Generation (0.358-3.74) uIU/mL Urine Color Dark yellow (Yellow) Urine Appearance Clear (Clear) Urine pH 6.0 (5.0-8.0) Ur Specific [place] > or = 1.030 (1.005-1.030) Urine Protein 1+ H (Negative) Urine Glucose (UA) Negative (Negative) Urine Ketones 2+ H (Negative) Urine Occult Blood 2+ H (Negative) Urine Nitrite Negative (Negative) Urine Bilirubin 1+ H (Negative) Urine Urobilinogen 1.0 (0.2-1.0) Ur Leukocyte Esterase Negative (Negative) Urine RBC 5-10 H (0-5) /hpf Urine WBC 0-5 (0-5) /hpf Ur Epithelial Cells 10-20 H (0-5) /hpf Urine Bacteria Rare (FEW) /hpf Urine Mucus Moderate H (FEW) /hpf Urine HCG, Qual Negative (NEGATIVE) Salicylates < 0.2 L (2.8-20) mg/dL Urine Opiates Screen (NEGATIVE) Ur Buprenorphine Scrn (NEGATIVE) Ur Oxycodone Screen (NEGATIVE) Urine Methadone Screen (NEGATIVE) Ur Propoxyphene Screen (NEGATIVE) Acetaminophen (10-30) ug/mL Ur Barbiturates Screen (NEGATIVE) Ur Tricyclics Screen (NEGATIVE) Ur Phencyclidine Scrn (NEGATIVE) Ur Amphetamine Screen (NEGATIVE) U Methamphetamines Scrn (NEGATIVE) U Benzodiazepines Scrn (NEGATIVE) U Cocaine Metab Screen (NEGATIVE) U Marijuana (THC) Screen (NEGATIVE) 09/27/17 Range/Units 17:15 WBC (3.98-10.04) K/mm3 RBC (3.98-5.22) M/mm3 Hgb (11.2-15.7) gm/L Hct (34.1-44.9) % MCV (79.4-94.8) fl MCH (25.6-32.2) pg MCHC (32.2-35.5) g/dl RDW Std Deviation (36.4-46.3) fL Plt Count (182-369) K/mm3 MPV (9.4-12.3) fl Neut % (Auto) (34.0-71.1) % Lymph % (Auto) (19.3-51.7) % [place] % (Auto) (4.7-12.5) % Eos % (Auto) (0.7-5.8) Baso % (Auto) (0.1-1.2) % Neut # (Auto) (1.56-6.13) K/mm3 Lymph # (Auto) (1.18-3.74) K/mm3 [place] # (Auto) (0.24-0.36) K/mm3 Eos # (Auto) (0.04-0.36) K/mm3 Baso # (Auto) (0.01-0.08) K/mm3 Sodium (136-145) mEq/L Potassium (3.5-5.1) mEq/L Chloride (98-107) mEq/L Carbon Dioxide (21-32) mEq/L Anion Gap (5-15) BUN (7-18) mg/dL Creatinine (0.55-1.02) mg/dL Est Cr Clr Drug Dosing mL/min Estimated GFR (MDRD) (>60) mL/min BUN/Creatinine Ratio (14-18) Glucose (74-106) mg/dL Calcium (8.5-10.1) mg/dL Total Bilirubin (0.2-1.0) mg/dL AST (15-37) U/L ALT (14-59) U/L Alkaline Phosphatase (46-116) U/L Total Protein (6.4-8.2) g/dl Albumin (3.4-5.0) g/dl Globulin gm/dL Albumin/Globulin Ratio (1-2) TSH 3rd Generation (0.358-3.74) uIU/mL Urine Color (Yellow) Urine Appearance (Clear) Urine pH (5.0-8.0) Ur Specific [place] (1.005-1.030) Urine Protein (Negative) Urine Glucose (UA) (Negative) Urine Ketones (Negative) Urine Occult Blood (Negative) Urine Nitrite (Negative) Urine Bilirubin (Negative) Urine Urobilinogen (0.2-1.0) Ur Leukocyte Esterase (Negative) Urine RBC (0-5) /hpf Urine WBC (0-5) /hpf Ur Epithelial Cells (0-5) /hpf Urine Bacteria (FEW) /hpf Urine Mucus (FEW) /hpf Urine HCG, Qual (NEGATIVE) Salicylates (2.8-20) mg/dL Urine Opiates Screen Negative (NEGATIVE) Ur Buprenorphine Scrn Negative (NEGATIVE) Ur Oxycodone Screen Negative (NEGATIVE) Urine Methadone Screen Negative (NEGATIVE) Ur Propoxyphene Screen Negative (NEGATIVE) Acetaminophen (10-30) ug/mL Ur Barbiturates Screen Negative (NEGATIVE) Ur Tricyclics Screen Negative (NEGATIVE) Ur Phencyclidine Scrn Negative (NEGATIVE) Ur Amphetamine Screen Negative (NEGATIVE) U Methamphetamines Scrn Negative (NEGATIVE) U Benzodiazepines Scrn Negative (NEGATIVE) U Cocaine Metab Screen Negative (NEGATIVE) U Marijuana (THC) Screen Negative (NEGATIVE) Medications Discontinued Medications Generic Name Dose Route Start Last Admin Trade Name Edmar PRN Reason Stop Dose Admin Sodium Chloride 1,000 mls @ 999 mls/hr 09/27/17 16:33 09/27/17 17:25 Normal Saline IV 09/27/17 17:33 999 mls/hr ONETIME ONE Administration Sodium Chloride 500 mls @ 500 mls/hr 09/27/17 18:27 09/27/17 18:35 Normal Saline IV 09/27/17 19:26 500 mls/hr ONETIME ONE Administration Lorazepam 0.5 mg 09/27/17 21:28 09/27/17 21:46 Ativan PO 09/27/17 21:29 0.5 mg ONETIME ONE Administration Ondansetron HCl 4 mg 09/27/17 16:35 09/27/17 17:26 Zofran IVPUSH 09/27/17 16:36 Not Given ONETIME ONE Ondansetron HCl 4 mg 09/27/17 21:48 09/27/17 21:52 Zofran Odt PO 09/27/17 21:49 4 mg ONETIME ONE Administration Sodium Chloride 10 ml 09/27/17 16:34 09/27/17 17:25 Saline Flush FLUSH 10 ml ASDIRECTED PRN Administration Keep Vein Open Re-Assessment/Re-Exam: 19:00 I've taken over for Siomara Garay PA-C. She informed me of the patient's history and physical. I've seen and evaluated the patient and agree with this. 21:[address] Herr, psychiatrist on-call regarding this patient. She does have follow-up on , this week, with a psychiatrist. This was set up by her work. Mom and her unaware of who this is. Dr. Herr and I decided that we could offer her one of 2 things. We could offer her inpatient admission she is thought blocking and elusive. She is also displayed concerning symptoms as such as anorexia. We could also let her go home tonight as she is seen with her mother. Mom denies anything such as condoms in the home. This would be under the condition that she is to start medication and to follow-up with a psychiatrist as planned. She is to return to the ER for symptoms change or worsen. I discussed my conversation with the patient and her mother. They would like to go home brennan and start medication. They agree to see the psychiatrist as planned. There are in agreement return to ER for symptoms change or worsen. Medical Clearance: 09/27/17 21:19 Patient is medically cleared to go home with her mother brennan. Discharge vs Psych Eval/Treatment:: 09/27/17 21:29 Patient is to be discharged from the hospital with the understanding that she is to start medications and follow-up with the psychiatrist as planned. Departure - Departure Time of Disposition: 21:33 Disposition: Home, Self-Care 01 Condition: Fair Clinical Impression: Depression, Anxiety - Discharge Information Prescriptions: Escitalopram [Lexapro] 10 mg PO DAILY #30 tab LORazepam [Ativan] 0.5 mg PO ASDIRECTED PRN #12 tablet PRN Reason: Insomnia Ondansetron [Zofran ODT] 4 mg PO Q6H PRN #15 tab.dis PRN Reason: Nausea Instructions: Major Depressive Disorder, Adult, [id number], Nausea and Vomiting, Adult Referrals: Roselyn Warren PA [Primary Care Provider] - Silvina Sewell NP [Nurse Practitioner] - Forms: ED Department Discharge Additional Instructions: Start the Lexapro 1 tab daily. This does have a black box warning for increased suicidality. If you have any suicidal thoughts or plan. Please return to the ER immediately. Ativan 1 tab at hour of sleep. Take this medication as needed for insomnia. Zofran 1 tab sublingual every 8 hours as needed for nausea. Follow up with psychiatry as planned. Also recommended starting to see a counselor. Recommend [facility] call [phone] to schedule with a provider there. Recommend [facility]. Follow-up with your family practice provider as needed. Please return to the ER immediately if your symptoms change or worsen.
[2017-09-27] MEDS ORDERED: Sodium Chloride 0.9% 500 ML IV ONE (18:27)
[2017-09-27] MEDS ORDERED: LORazepam 0.5 MG Tab PO ONE (21:28)
[2017-09-27] MEDS ORDERED: Ondansetron 4 MG Tab.DIS PO ONE (21:48)
== END 2017-09-27 22:32 | disposition home or self-care (01) ==
LOC: JD.ED 15:15
DX: F32.9 Major depressive disorder, single episode, unspecified (principal); F41.9 Anxiety disorder, unspecified; F17.210 Nicotine dependence, cigarettes, uncomplicated; Z79.899 Other long term (current) drug therapy
CPT/HCPCS: 36415; 80053; 80306; 81001; 81025; 84443; 85025; 96360; 96361; 99284; A9270; G0480; J7040; J7050

== ENCOUNTER 2017-09-28 15:16 | Emergency (ER) | payer BC ==
[2017-09-28 15:27] VITALS: BP 114/68
--- NOTE | 2017-09-28 17:06 | EDM.PDOCBH ---
ED HPI GENERAL MEDICAL PROBLEM - General Chief Complaint: Behavioral/Psych Stated Complaint: UNABLE TO EAT OR DRINK Time Seen by Provider: 09/28/17 16:04 Source of Information: Reports: Patient (Limited), Family (Mother and younger sister) History Limitations: Reports: Uncooperative, Other (Elusive, vague) - History of Present Illness INITIAL COMMENTS - FREE TEXT/NARRATIVE: 27-year-old female brought in by her mother and sister after going home from the ER yesterday for similar complaint of not eating and unable to make decisions. Yesterday she was prescribed Lexapro and Ativan. Patient's mother states she took the Ativan last night which helped her sleep and she took Lexapro about an hour ago. Mom states that patient seems to have gotten more alert since yesterday with fluids that were given in the ER, but she is becoming more difficult to communicate with. Mom states she took a 2 hour shower and took about an hour to get ready today and they feel that inpatient might be the way to go. Patient has had a similar episode about 5 years ago with the only thing that helps been inpatient. She was prescribed medication when she is inpatient but then she weaned off and is currently not on medication until prescribed yesterday. Mother denies any other symptoms no fever , chills, chest pain, difficulty breathing. Patient does not state that she is suicidal but at this point mom and sister both afraid that she is hurting herself by not eating or drinking much water. - Related Data Allergies Allergy/AdvReac Type Severity Reaction Status Date / Time No Known Allergies Allergy Verified 09/28/17 15:27 Home Meds: Home Meds Escitalopram [Lexapro] 10 mg PO DAILY #30 tab 09/27/17 [Rx] LORazepam [Ativan] 0.5 mg PO ASDIRECTED PRN #12 tablet 09/27/17 [Rx] Ondansetron [Zofran ODT] 4 mg PO Q6H PRN #15 tab.dis 09/27/17 [Rx] Past Medical History HEENT History: Reports: Impaired Vision, Other (See Below) Other HEENT History: wears glasses Cardiovascular History: Reports: Other (See Below) Other Cardiovascular History: chest pain Respiratory History: Reports: Other (See Below) Other Respiratory History: dyspnea Gastrointestinal History: Reports: Other (See Below) Other Gastrointestinal History: "slight hernia", nelson syndrom Genitourinary History: Reports: None PROOF READER History: Reports: Other (See Below) Other OB/BYN History: pelvic pain, vaginal discharge, uterine cramping Musculoskeletal History: Reports: None Neurological History: Reports: None Psychiatric History: Reports: Anxiety, OCD Endocrine/Metabolic History: Reports: Obesity/BMI 30+ Hematologic History: Reports: None Immunologic History: Reports: None Oncologic (Cancer) History: Reports: None Dermatologic History: Reports: None - Past Surgical History GI Surgical History: Reports: Appendectomy, Colonoscopy Social & Family History - Tobacco Use Smoking Status *Q: Current Every Day Smoker Years of Tobacco use: 6 Packs/Tins Daily: 0.2 Used Tobacco, but Quit: No Second Hand Smoke Exposure: No - Caffeine Use Caffeine Use: Reports: None - Alcohol Use Days Per Week of Alcohol Use: 1 (occasional) Number of Drinks Per Day: 1 Total Drinks Per Week: 1 - Recreational Drug Use Recreational Drug Use: No - Living Situation & Occupation Occupation: Employed ED ROS GENERAL - Review of Systems Review Of Systems: See Below Constitutional: Reports: Malaise Respiratory: Denies: Shortness of Breath, Wheezing, Cough Cardiovascular: Denies: Chest Pain GI/Abdominal: Reports: Anorexia, Decreased Appetite. Denies: Abdominal Pain, Nausea, Vomiting Neurological: Denies: Headache Psychiatric: Reports: Agitation, Anxiety, Depression. Denies: Homicidal Ideation, Suicidal Ideation ED EXAM, BEHAVIORAL HEALTH - Physical Exam Exam: See Below Exam Limited By: No Limitations General Appearance: Alert, WD/WN, Mild Distress Eye Exam: Bilateral Eye: Normal Inspection Ears: Normal External Exam Nose: Normal Inspection Throat/Mouth: Other (Lips are dry) Head: Atraumatic, Normocephalic Respiratory/Chest: No Respiratory Distress, Lungs Clear, Normal Breath Sounds, Chest Non-Tender Cardiovascular: Normal Peripheral Pulses, Regular Rate, Rhythm GI/Abdominal: Normal Bowel Sounds, Soft, Non-Tender Back Exam: Normal Inspection Extremities: Normal Inspection Neurological: Alert Psychiatric: Alert, Depressed Mood, Flat Affect, Tearful, Agitated, Non- Communicative, Uncooperative, Withdrawn, Other (Thought blocking). No: Suicidal Plan, Suicidal Thoughts Skin Exam: Warm, Dry, Intact, Normal color COURSE, BEHAVIORAL HEALTH COMP - Course Vital Signs: Last Vital Signs Temp 36.1 C 09/28/17 15:24 Pulse 61 09/28/17 15:24 Resp 18 09/28/17 15:24 BP 114/68 09/28/17 15:24 Pulse Ox 100 09/28/17 15:24 Orders, Labs, Meds: Active Orders 24 hr Category Date Time Status Peripheral IV Care [RC] . DIRECTED Care 09/28/17 16:58 Active DRUG SCREEN, URINE [URCHEM] Stat Lab 09/28/17 16:57 Ordered ETHANOL BLOOD MEDICAL [CHEM] Stat Lab 09/28/17 16:56 Ordered Sodium Chloride 0.9% [Saline Flush] Med 09/28/17 16:58 Active 10 ml FLUSH ASDIRECTED PRN Peripheral IV Insertion Adult [OM.PC] Routine Oth 09/28/17 16:58 Ordered Medication Orders Sodium Chloride (Saline Flush) 10 ml FLUSH ASDIRECTED PRN PRN Reason: Keep Vein Open Last Admin: 09/28/17 17:16 Dose: 10 ml Medications Generic Name Dose Route Start Last Admin Trade Name Freq PRN Reason Stop Dose Admin Sodium Chloride 10 ml 09/28/17 16:58 09/28/17 17:16 Saline Flush FLUSH 10 ml ASDIRECTED PRN Administration Keep Vein Open Discontinued Medications Generic Name Dose Route Start Last Admin Trade Name Freq PRN Reason Stop Dose Admin Sodium Chloride 1,000 mls @ 999 mls/hr 09/28/17 16:58 09/28/17 17:16 Normal Saline IV 09/28/17 17:58 999 mls/hr ONETIME ONE Administration Re-Assessment/Re-Exam: 18:07 This patient was initially seen and assessed by Siomara Garay PA-C. I've seen the patient and agree with the assessment treatment plan. I have also seen the patient last night. She was offered last night to try outpatient therapy as she had follow-up on and to start medications versus go to inpatient. At this point she is to be failing outpatient therapy and we have decided to inpatient I discussed the case with Dr. Diamond, psychiatrist on-call at [facility]. She agrees to accept the patient. Emergency fdc paperwork has been filed. She will by to [facility] in [place]. Medical Clearance: 09/28/17 18:09 Patient has been medically cleared to go to [facility] in [place]. She had a full workup of labs last night. See that note for complete details. Discharge vs Psych Eval/Treatment:: 09/28/17 18:09 Patient will go by [facility] . She is a direct admission to the inpatient psychiatric unit under Dr. Diamond. Departure - Departure Time of Disposition: 18:10 Disposition: DC/Tfer to Psych Hosp/Unit 65 Condition: Serious Clinical Impression: Depressive disorder, Anxiety, Self-harming behavior - Discharge Information Referrals: Roselyn Warren PA [Primary Care Provider] - Forms: ED Department Discharge Additional Instructions: Patient will go to [facility] via [facility]. Dr. Diamond , psychiatrist accepting. - My Orders Last 24 Hours: My Active Orders 09/28/17 16:56 ETHANOL BLOOD MEDICAL [CHEM] Stat 09/28/17 16:57 DRUG SCREEN, URINE [URCHEM] Stat 09/28/17 16:58 Peripheral IV Care [RC] . DIRECTED Sodium Chloride 0.9% [Saline Flush] 10 ml FLUSH ASDIRECTED PRN Peripheral IV Insertion Adult [OM.PC] Routine - Assessment/Plan Last 24 Hours: My Active Orders 09/28/17 16:56 ETHANOL BLOOD MEDICAL [CHEM] Stat 09/28/17 16:57 DRUG SCREEN, URINE [URCHEM] Stat 09/28/17 16:58 Peripheral IV Care [RC] . DIRECTED Sodium Chloride 0.9% [Saline Flush] 10 ml FLUSH ASDIRECTED PRN Peripheral IV Insertion Adult [OM.PC] Routine
[2017-09-28] MEDS: Sodium Chloride 0.9% 10 ML Syringe FLUSH PRN (17:16)
[2017-09-28] MEDS: Sodium Chloride 0.9% 1,000 ML IV ONE (17:16)
== END 2017-09-28 19:35 ==
LOC: JD.ED 15:16
DX: F41.8 Other specified anxiety disorders (principal); F17.210 Nicotine dependence, cigarettes, uncomplicated; Z72.89 Other problems related to lifestyle; Z79.899 Other long term (current) drug therapy
CPT/HCPCS: 36415; 80306; 96360; 99285; G0480; J7040; J7050

== ENCOUNTER 2019-08-23 12:02 | Emergency (ER) | payer BC ==
[2019-08-23 12:20] VITALS: BP 117/84; PULSE 65
[2019-08-23] MEDS ORDERED: Ketorolac 60 MG/2 ML SDV IM ONE (12:59)
[2019-08-23] MEDS ORDERED: Sodium Chloride 0.9% 10 ML Syringe FLUSH PRN (13:00)
--- NOTE | 2019-08-23 13:17 | EDM.PDOC ---
ED HPI GENERAL MEDICAL PROBLEM - General Chief Complaint: Upper Extremity Injury/Pain Stated Complaint: LEFT ARM NUMBNESS AND SHARP PAIN Time Seen by Provider: 08/23/19 12:36 Source of Information: Reports: Patient, RN Notes Reviewed History Limitations: Reports: No Limitations - History of Present Illness INITIAL COMMENTS - FREE TEXT/NARRATIVE: Patient is a 29-year-old female who presents to the ED for the evaluation of left arm numbness and pain. Patient notes she has been having left arm tingling and aching on and off for the past 2 weeks. She states that the pain starts in her anterior chest also in her posterior chest by her shoulder blade. She notes that both pains radiate to her upper arm. Sometimes it radiates into her fingers. She further denies any facial numbness, or other neurological symptoms or confusion or headache. She notes that she has not had any other sort of sick-like symptoms, fever/chills, shortness of breath, nausea or vomiting or diarrhea. Patient notes that she did recently get a new bra, that was an underwire bra. Although she has not been wearing this for the past few days. She does note that she has a positive family history, she states her mother, grandmother, and sister all have had blood clots within the past 3 years , so she is worried that she might have a blood clot. Left Arm Pain Score (Numeric/FACES): 3 - Related Data Allergies Allergy/AdvReac Type Severity Reaction Status Date / Time No Known Allergies Allergy Verified 08/23/19 12:21 Home Meds: Home Meds Sertraline [Zoloft] 100 mg PO DAILY 02/26/19 [History] Past Medical History HEENT History: Reports: Impaired Vision, Other (See Below) Other HEENT History: contacts Gastrointestinal History: Reports: Other (See Below) Other Gastrointestinal History: Ruiz syndrome. 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) - Past Surgical History GI Surgical History: Reports: Appendectomy, Colonoscopy Social & Family History - Family History Respiratory: Reports: Other (See Below) Other Respiratory Family Hisory: Sister, mother, grandmother with hx/o blood clots - Caffeine Use Caffeine Use: Reports: Coffee - Recreational Drug Use Recreational Drug Use: No - Living Situation & Occupation Occupation: Employed Review of Systems - Review of Systems Review Of Systems: See Below Constitutional: Denies: Chills, Fever Respiratory: Denies: Shortness of Breath, Cough Cardiovascular: Reports: Chest Pain (intermittent L chest discomfort) GI/Abdominal: Denies: Abdominal Pain Musculoskeletal: Reports: Arm Pain (intermittent L arm pain), Back Pain (L shoulderblade pain). Denies: Shoulder Pain Neurological: Reports: Tingling. Denies: Headache, Numbness, Syncope, Weakness , Change in Speech ED EXAM, GENERAL - Physical Exam Exam: See Below Exam Limited By: No Limitations General Appearance: Alert, WD/WN, No Apparent Distress Eye Exam: Bilateral Eye: EOMI, Normal Inspection, PERRL Throat/Mouth: Normal Inspection, Normal Lips, Normal Teeth, Normal Gums, Normal Oropharynx, Normal Voice, No Airway Compromise Head: Atraumatic, Normocephalic Neck: Normal Inspection Respiratory/Chest: No Respiratory Distress, Lungs Clear, Normal Breath Sounds, No Accessory Muscle Use, Other (L anterior chest tender with palpation to 4-5th rib area.) Cardiovascular: Normal Peripheral Pulses, Regular Rate, Rhythm, No Edema, No Murmur Peripheral Pulses: 3+: Radial (L), Radial (R) GI/Abdominal: Normal Bowel Sounds, Soft, Non-Tender, No Distention, No Mass Extremities: Normal Inspection, Normal Range of Motion, Normal Capillary Refill Neurological: Alert, Oriented, Normal Cognition, No Motor/Sensory Deficits Psychiatric: Normal Affect, Normal Mood Skin Exam: Warm, Dry, Intact, Normal Color, No Rash EKG INTERPRETATION EKG Date: 08/23/19 Time: 13:07 Rhythm: Other (sinus bradycardia) Rate (Beats/Min): 46 Bent: Normal P-Wave: Present QRS: Normal ST-T: Normal QT: Normal Comparison: NA - No Prior EKG EKG Interpretation Comments: No acute ischemic change. reviewed by myself and Dr. Andujar. Course - Vital Signs Last Recorded V/S: Last Vital Signs Temp 98.4 F 08/23/19 12:16 Pulse 65 08/23/19 12:16 Resp 16 08/23/19 12:16 BP 117/84 08/23/19 12:16 Pulse Ox 98 08/23/19 12:16 - Orders/Labs/Meds Orders: Active Orders 24 hr Category Date Time Status EKG Documentation Completion [RC] STAT Care 08/23/19 13:00 Active Peripheral IV Care [RC] . DIRECTED Care 08/23/19 13:00 Active Sodium Chloride 0.9% [Saline Flush] Med 08/23/19 13:00 Active 10 ml FLUSH ASDIRECTED PRN Peripheral IV Insertion Adult [OM.PC] Stat Oth 08/23/19 13:00 Ordered Medication Orders Sodium Chloride (Saline Flush) 10 ml FLUSH ASDIRECTED PRN PRN Reason: Keep Vein Open Labs: Laboratory Tests 08/23/19 08/23/19 08/23/19 Range/Units 13:29 13:29 13:29 WBC 7.94 (3.98-10.04) K/mm3 RBC 4.60 (3.98-5.22) M/mm3 Hgb 12.7 D (11.2-15.7) gm/dl Hct 40.4 (34.1-44.9) % MCV 87.8 (79.4-94.8) fl MCH 27.6 (25.6-32.2) pg MCHC 31.4 L (32.2-35.5) g/dl RDW Std Deviation 42.9 (36.4-46.3) fL Plt Count 323 (182-369) K/mm3 MPV 9.6 (9.4-12.3) fl Neut % (Auto) 67.1 (34.0-71.1) % Lymph % (Auto) 23.2 (19.3-51.7) % [place] % (Auto) 6.8 (4.7-12.5) % Eos % (Auto) 2.4 (0.7-5.8) Baso % (Auto) 0.5 (0.1-1.2) % Neut # (Auto) 5.33 (1.56-6.13) K/mm3 Lymph # (Auto) 1.84 (1.18-3.74) K/mm3 [place] # (Auto) 0.54 H (0.24-0.36) K/mm3 Eos # (Auto) 0.19 (0.04-0.36) K/mm3 Baso # (Auto) 0.04 (0.01-0.08) K/mm3 D-Dimer, Quantitative 0.54 H (0.19-0.50) mg/L Sodium 141 (136-145) mEq/L Potassium 3.6 (3.5-5.1) mEq/L Chloride 105 (98-107) mEq/L Carbon Dioxide 25 (21-32) mEq/L Anion Gap 14.6 (5-15) BUN 14 (7-18) mg/dL Creatinine 0.8 (0.55-1.02) mg/dL Est Cr Clr Drug Dosing 98.01 mL/min Estimated GFR (MDRD) > 60 (>60) mL/min BUN/Creatinine Ratio 17.5 (14-18) Glucose 98 (74-106) mg/dL Calcium 8.5 (8.5-10.1) mg/dL Total Bilirubin 0.4 (0.2-1.0) mg/dL AST 23 (15-37) U/L ALT 29 (14-59) U/L Alkaline Phosphatase 75 (46-116) U/L Troponin I < 0.017 (0.00-0.056) ng/mL Total Protein 7.4 (6.4-8.2) g/dl Albumin 3.2 L (3.4-5.0) g/dl Globulin 4.2 gm/dL Albumin/Globulin Ratio 0.8 L (1-2) Meds: Medications Generic Name Dose Route Start Last Admin Trade Name Freq PRN Reason Stop Dose Admin Sodium Chloride 10 ml 08/23/19 13:00 Saline Flush FLUSH ASDIRECTED PRN Keep Vein Open Discontinued Medications Generic Name Dose Route Start Last Admin Trade Name Freq PRN Reason Stop Dose Admin Ketorolac Tromethamine 60 mg 08/23/19 12:59 08/23/19 13:47 Toradol IM 08/23/19 13:00 60 mg ONETIME ONE Administration - Re-Assessments/Exams Free Text/Narrative Re-Assessment/Exam: 08/23/19 13:25 Patient presents to the ED for evaluation of left-sided chest discomfort and arm tingling. Although I did explain that her symptoms are likely costochondritis in nature, she was worried due to her family history of the blood clots in last 3 years, and was requesting further laboratory evaluation. Due to her left-sided chest discomfort, I did order EKG, troponin, CBC and CMP also a d-dimer. She specifically states she has never been worked up for any sort of bleeding disorder or clot issue. I did redirect her to her care provider for further evaluation regarding bleeding disorders. She is understanding of this at this time. She notes that her primary care provider was Roselyn Warren however that provider has left our practice, so I told her to follow-up with 1 of her other coworkers. 08/23/19 14:22 Patient labs are done, and are fairly unremarkable, her d-dimer is very mildly elevated at 1.54. As she was worried about a blood clot, I do not believe she has a pulmonary embolus, but I will do an ultrasound of the left arm to rule out any sort of blood clot in that area. I do not believe she would meet criteria for a chest CT, in Lieu of concerning respiratory symptoms. 08/23/19 16:15 Ultrasound demonstrates no sign of a DVT within the left upper arm, I did relay this to the patient, she is relieved that there is no DVT. I will have her follow-up with her regular provider for further clotting testing, she verbalized understanding. Departure - Departure Time of Disposition: 16:15 Disposition: Home, Self-Care 01 Condition: Fair Clinical Impression: Costochondritis - Discharge Information *PRESCRIPTION DRUG MONITORING PROGRAM REVIEWED*: No *COPY OF PRESCRIPTION DRUG MONITORING REPORT IN PATIENT THANH: No Instructions: Costochondritis, [id number] Referrals: PCP,None [Primary Care Provider] - Forms: ED Department Discharge Additional Instructions: You have been evaluated in the ED for your left sided chest discomfort with left arm pain Your oratory evaluation was essentially within normal limits, your d-dimer, which is a very nonspecific test for any sort of blood clots was very very mildly elevated at 0.54, you did have an ultrasound done of the left upper arm, and this demonstrated no DVT within the arm. Please use ice/heat as tolerated to the affected area. You may take ibuprofen 600mg q6 hrs for pain relief. Please do so until you have a tolerable level of pain with activity. Do not exceed 3200mg ibuprofen in a 24 hour time period. Highly recommend you follow-up with a family care provider, for further testing regarding clotting disorders, as this seems to be a familial thing. Please call [phone] and schedule with a primary care provider of choice. Any family practice provider should be able to provide you with the services. Please return to ED if your symptoms should change or worsen. Sepsis Event Note - Evaluation Sepsis Screening Result: No Definite Risk - Focused Exam Vital Signs: Vital Signs Temp Pulse Resp BP Pulse Ox 08/23/19 12:16 98.4 F 65 16 117/84 98 Date Exam was Performed: 08/23/19 Time Exam was Performed: 16:15 - My Orders Last 24 Hours: My Active Orders 08/23/19 13:00 EKG Documentation Completion [RC] STAT Peripheral IV Care [RC] . DIRECTED Sodium Chloride 0.9% [Saline Flush] 10 ml FLUSH ASDIRECTED PRN Peripheral IV Insertion Adult [OM.PC] Stat - Assessment/Plan Last 24 Hours: My Active Orders 08/23/19 13:00 EKG Documentation Completion [RC] STAT Peripheral IV Care [RC] . DIRECTED Sodium Chloride 0.9% [Saline Flush] 10 ml FLUSH ASDIRECTED PRN Peripheral IV Insertion Adult [OM.PC] Stat
--- NOTE | 2019-08-23 16:08 | US ---
Left upper arm venous ultrasound: Duplex and color Doppler evaluation was performed of the left internal jugular, subclavian, axillary, cephalic, brachial, basilic, radial and ulnar veins. Right internal jugular was also evaluated. Findings: Normal compression, phasic flow and augmentation is seen. Impression: 1. No evidence of venous thrombosis within the left upper extremity or within the right internal jugular vein. Diagnostic code #1 This report was dictated in [place] Standard Time
== END 2019-08-23 16:33 | disposition home or self-care (01) ==
LOC: JD.ED 12:02
DX: M94.0 Chondrocostal junction syndrome [Tietze] (principal); F41.9 Anxiety disorder, unspecified; F32.9 Major depressive disorder, single episode, unspecified; E66.9 Obesity, unspecified; Z79.899 Other long term (current) drug therapy; Z68.34 Body mass index [BMI] 34.0-34.9, adult
CPT/HCPCS: 36415; 80053; 84484; 85025; 85379; 93005; 93971; 96372; 99284; J1885; 93010; 99283

== ENCOUNTER 2019-10-01 14:00 | Emergency (ER) | payer BC ==
--- NOTE | 2019-10-01 14:11 | EDM.PDOC ---
ED HPI GENERAL MEDICAL PROBLEM - General Chief Complaint: Chest Pain Stated Complaint: FEELS LIKE SOMETHING IN THROAT/HURTS DOWN TO CHEST Time Seen by Provider: 10/01/19 14:11 - History of Present Illness INITIAL COMMENTS - FREE TEXT/NARRATIVE: 29-year-old female presents the emergency room with sensation of something being stuck in her throat. This is been going on since last night. She has a burning sensation coming up her throat and it is worse near her voicebox. The patient gives a history of having significant reflux for about the last month progressively getting worse. Surprisingly she does not have significant abdominal discomfort with this. At times gets irritated when she is taken a deep breath. At times it is difficult for her to breathe in or out almost like a phrenic nerve irritation causes diaphragm spasm. Patient has an intermittent cough when the reflux is worse. This last weekend the patient was drinking a lot and smoking a lot they can be an irritation for this. Middle Chest Pain Score (Numeric/FACES): 6 - Related Data Allergies Allergy/AdvReac Type Severity Reaction Status Date / Time No Known Allergies Allergy Verified 10/01/19 14:13 Home Meds: Home Meds Sertraline [Zoloft] 100 mg PO DAILY 02/26/19 [History] Pantoprazole Sodium 40 mg PO ASDIRECTED #30 tablet. 10/01/19 [Rx] Sucralfate [Carafate] 1 gm PO ASDIRECTED #24 ml 10/01/19 [Rx] Past Medical History HEENT History: Reports: Impaired Vision, Other (See Below) Other HEENT History: contacts Gastrointestinal History: Reports: Other (See Below) Other Gastrointestinal History: Ruiz syndrome. 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, uterine cramping Musculoskeletal History: Reports: Other (See Below) Other Musculoskeletal History: DeQuevains tenosynovitis Neurological History: Reports: None Psychiatric History: Reports: Anxiety, Depression, OCD Endocrine/Metabolic History: Reports: Obesity/BMI 30+ Hematologic History: Reports: None Immunologic History: Reports: None Oncologic (Cancer) History: Reports: None Other Oncologic History: ruiz syndrome Dermatologic History: Reports: None - Past Surgical History GI Surgical History: Reports: Appendectomy, Colonoscopy Social & Family History - Family History Respiratory: Reports: Other (See Below) Other Respiratory Family Hisory: Sister, mother, grandmother with hx/o blood clots - Caffeine Use Caffeine Use: Reports: Coffee - Living Situation & Occupation Occupation: Employed ED ROS GENERAL - Review of Systems Review Of Systems: See Below Constitutional: Reports: No Symptoms HEENT: Reports: Throat Pain Respiratory: Reports: No Symptoms Cardiovascular: Reports: No Symptoms GI/Abdominal: Reports: Other (Reflux symptoms) : Reports: No Symptoms Musculoskeletal: Reports: No Symptoms Skin: Reports: No Symptoms ED EXAM, GENERAL - Physical Exam Exam: See Below Exam Limited By: No Limitations General Appearance: Alert, No Apparent Distress Head: Atraumatic, Normocephalic Neck: Normal Inspection, Supple, Non-Tender, Full Range of Motion. No: Lymphadenopathy (L), Lymphadenopathy (R) Respiratory/Chest: No Respiratory Distress, Lungs Clear, Normal Breath Sounds Cardiovascular: Regular Rate, Rhythm, No Edema, No Murmur GI/Abdominal: Normal Bowel Sounds, Soft, Tender (Minimal epigastric discomfort) . No: Guarding, Rigid, Rebound Back Exam: Normal Inspection. No: CVA Tenderness (L), CVA Tenderness (R) Extremities: Normal Inspection. No: No Pedal Edema Neurological: Alert, Oriented, Normal Cognition Course - Vital Signs Last Recorded V/S: Last Vital Signs Temp 37.0 C 10/01/19 14:08 Pulse 71 10/01/19 14:08 Resp 16 10/01/19 14:08 BP 132/78 10/01/19 14:08 Pulse Ox 98 10/01/19 14:08 - Orders/Labs/Meds Labs: Laboratory Tests 10/01/19 10/01/19 Range/Units 15:10 15:10 WBC 7.55 (3.98-10.04) K/mm3 RBC 4.63 (3.98-5.22) M/mm3 Hgb 12.7 (11.2-15.7) gm/dl Hct 40.3 (34.1-44.9) % MCV 87.0 (79.4-94.8) fl MCH 27.4 (25.6-32.2) pg MCHC 31.5 L (32.2-35.5) g/dl RDW Std Deviation 43.7 (36.4-46.3) fL Plt Count 428 H D (182-369) K/mm3 MPV 8.9 L (9.4-12.3) fl Neutrophils % (Manual) 52 (40-60) % Band Neutrophils % 0 (0-10) % Lymphocytes % (Manual) 44 H (20-40) % Atypical Lymphs % 0 % Monocytes % (Manual) 2 (2-10) % Eosinophils % (Manual) 2 (0.7-5.8) % Basophils % (Manual) 0 L (0.1-1.2) Platelet Estimate Adequate Plt Morphology Comment Normal RBC Morph Comment Normal Sodium 140 (136-145) mEq/L Potassium 3.8 (3.5-5.1) mEq/L Chloride 104 (98-107) mEq/L Carbon Dioxide 24 (21-32) mEq/L Anion Gap 15.8 H (5-15) BUN 12 (7-18) mg/dL Creatinine 0.7 (0.55-1.02) mg/dL Est Cr Clr Drug Dosing 112.01 mL/min Estimated GFR (MDRD) > 60 (>60) mL/min BUN/Creatinine Ratio 17.1 (14-18) Glucose 94 (74-106) mg/dL Calcium 8.8 (8.5-10.1) mg/dL Total Bilirubin 0.7 (0.2-1.0) mg/dL AST 23 (15-37) U/L ALT 43 (14-59) U/L Alkaline Phosphatase 89 (46-116) U/L Total Protein 7.5 (6.4-8.2) g/dl Albumin 3.3 L (3.4-5.0) g/dl Globulin 4.2 gm/dL Albumin/Globulin Ratio 0.8 L (1-2) Lipase 62 L (73-393) U/L Meds: Medications Discontinued Medications Generic Name Dose Route Start Last Admin Trade Name Freq PRN Reason Stop Dose Admin Al Hydroxide/Mg Hydroxide 30 0 ml 10/01/19 14:50 10/01/19 15:09 ml/ Lidocaine HCl 15 ml PO 10/01/19 14:51 45 ml ONETIME ONE Administration Pantoprazole Sodium 40 mg 10/01/19 15:21 10/01/19 15:40 Protonix PO 10/01/19 15:22 40 mg ONETIME ONE Administration - Re-Assessments/Exams Free Text/Narrative Re-Assessment/Exam: 10/01/19 17:53 Patient was given a GI cocktail and had pretty good relief of this not complete this was followed up with a Protonix 40 mg p.o. and should be given Carafate now. The patient will be discharged with Carafate and PPI therapy. Departure - Departure Time of Disposition: 17:53 Disposition: Home, Self-Care 01 Clinical Impression: Gastroesophageal reflux disease Prescriptions: Pantoprazole Sodium 40 mg PO ASDIRECTED #30 tablet. Sucralfate [Carafate] 1 gm PO ASDIRECTED #24 ml Referrals: PCP,None [Primary Care Provider] - Forms: ED Department Discharge Additional Instructions: Return to the emergency room with any questions problems or worsening symptoms. Follow-up in the hospital clinic for an appointment in 1 week for recheck call tomorrow to schedule an appointment [phone]. Take the Carafate for 6 days you will take this suspension just before your morning midday evening meals and again at bedtime take your other medications at least an hour before or 2 hours after using the Carafate. Take the pantoprazole 30 to 60 minutes before your morning meal but be sure to take it at least 60 minutes before your morning meal while you are taking the Carafate. Sepsis Event Note - Focused Exam Vital Signs: Vital Signs Temp Pulse Resp BP Pulse Ox 10/01/19 14:08 37.0 C 71 16 132/78 98 Date Exam was Performed: 10/01/19 Time Exam was Performed: 17:53
[2019-10-01 14:13] VITALS: BP 132/78; PULSE 71
[2019-10-01] MEDS ORDERED: Alum Hydrox/Mag Hydrox/Simeth 30 ML, Lidocaine 2% 15 ML PO ONE ×2 (14:50)
[2019-10-01] MEDS ORDERED: Pantoprazole 40 MG Tab.CR PO ONE (15:21)
[2019-10-01] MEDS ORDERED: Sucralfate Suspension 1 GM/10 ML Cup PO ONE (17:54)
== END 2019-10-01 18:16 | disposition home or self-care (01) ==
LOC: JD.ED 14:00
DX: K21.9 Gastro-esophageal reflux disease without esophagitis (principal)
CPT/HCPCS: 36415; 80053; 83690; 85007; 85027; 99284; A9270; 99283

== ENCOUNTER 2020-01-28 07:16 | Emergency (ER) | payer BC ==
[2020-01-28 07:52] VITALS: BP 122/61; PULSE 68
--- NOTE | 2020-01-28 07:58 | EDM.PDOC ---
ED HPI GENERAL MEDICAL PROBLEM - General Chief Complaint: Respiratory Problem Stated Complaint: COVID TEST/MINIMAL SYMPTOMS Time Seen by Provider: 01/28/20 09:07 Source of Information: Reports: Patient History Limitations: Reports: No Limitations - History of Present Illness INITIAL COMMENTS - FREE TEXT/NARRATIVE: 29-year-old female presents to the ED for evaluation for possible exposure to COVID 19 virus. She states she started to feel more short of breath the last couple of days. Particular noted yesterday. Minimal nasal congestion. No fever or chills. Appetite remains good. He was in [place] approximately 2 weeks ago. Otherwise she has been in [place]. Also here with her boyfriend whom they live together with. He also has upper respiratory tract symptoms with nasal congestion cough and shortness of breath. She is to be screened for COVID 19. Onset: Sudden Onset Date: 01/27/20 Duration: Hour(s): (Did feel unwell yesterday.), Getting Worse Location: Reports: Chest (Subjective shortness of breath.) Quality: Reports: Other (No cough no sputum production) Severity: Mild Improves with: Reports: None Worsens with: Reports: None Context: Reports: Other (Spontaneous occurrence.). Denies: Activity, Exercise, Lifting, Sick Contact, Trauma Associated Symptoms: Reports: No Other Symptoms. 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, vaginal discharge, uterine cramping Musculoskeletal History: Reports: Other (See Below) Other Musculoskeletal History: DeQuevains tenosynovitis Neurological History: Reports: None Psychiatric History: Reports: Anxiety, Depression, OCD Endocrine/Metabolic History: Reports: Obesity/BMI 30+ Hematologic History: Reports: None Immunologic History: Reports: None Oncologic (Cancer) History: Reports: None Other Oncologic History: ruiz syndrome Dermatologic History: Reports: None - Infectious Disease History Infectious Disease History: Reports: None - Past Surgical History Head Surgeries/Procedures: Reports: None GI Surgical History: Reports: Appendectomy, Colonoscopy Social & Family History - Family History Respiratory: Reports: Other (See Below) Other Respiratory Family Hisory: Sister, mother, grandmother with hx/o blood c lots - Tobacco Use Smoking Status *Q: Never Smoker - Caffeine Use Caffeine Use: Reports: Coffee - Recreational Drug Use Recreational Drug Use: No - Living Situation & Occupation Occupation: Employed ED ROS GENERAL - Review of Systems Review Of Systems: See Below Constitutional: Reports: Malaise, Fatigue. Denies: Fever, Chills, Diaphoresis, Decreased Appetite, Weight Loss HEENT: Reports: Rhinitis (Minimal nasal congestion) Respiratory: Reports: Shortness of Breath. Denies: Wheezing (Active shortness of breath but O2 sats are 97% on room air with a respiratory to 16.), Pleuritic Chest Pain, Cough, Sputum, Hemoptysis Cardiovascular: Denies: Chest Pain, Blood Pressure Problem, Claudication, Dyspnea on Exertion, Edema, Lightheadedness, Orthopnea, Palpitations Endocrine: Reports: Fatigue GI/Abdominal: Reports: No Symptoms : Reports: No Symptoms Musculoskeletal: Reports: No Symptoms Skin: Reports: No Symptoms Neurological: Reports: No Symptoms Psychiatric: Reports: No Symptoms Hematologic/Lymphatic: Reports: No Symptoms Immunologic: Reports: No Symptoms ED EXAM, GENERAL - Physical Exam Exam: See Below Exam Limited By: No Limitations General Appearance: Alert, WD/WN, No Apparent Distress, Other (Temperature is 36.9 with a heart rate of 68. Respiratory to 16 BP 122/61. Pulse ox 97% on room air) Eye Exam: Bilateral Eye: Normal Inspection, PERRL Ears: Normal TMs Nose: Normal Inspection Throat/Mouth: Normal Inspection, Normal Lips, Normal Oropharynx Head: Atraumatic, Normocephalic Neck: Normal Inspection, Supple, Non-Tender, Full Range of Motion. No: Lymphadenopathy (L), Lymphadenopathy (R) Respiratory/Chest: No Respiratory Distress, Lungs Clear, Normal Breath Sounds, No Accessory Muscle Use Cardiovascular: Normal Peripheral Pulses, Regular Rate, Rhythm, No Edema, No Gallop, No Murmur, No Rub Peripheral Pulses: 3+: Carotid (L), Carotid (R), Posterior Tibial (L), Posterior Tibial (R), Dorsalis Pedis (L), Dorsalis Pedis (R) GI/Abdominal: Normal Bowel Sounds, Soft, Non-Tender, No Organomegaly, No Distention Back Exam: Normal Inspection, Full Range of Motion. No: CVA Tenderness (L), CVA Tenderness (R) Extremities: Normal Inspection, Normal Range of Motion, Non-Tender, No Pedal Edema Neurological: Alert, Oriented, CN II-XII Intact, Normal Cognition Psychiatric: Normal Affect, Normal Mood Skin Exam: Warm, Dry, Intact, Normal Color, No Rash Course - Vital Signs Last Recorded V/S: Last Vital Signs Temp 36.9 C 01/28/20 07:50 Pulse 68 01/28/20 07:50 Resp 16 01/28/20 07:50 BP 122/61 01/28/20 07:50 Pulse Ox 97 01/28/20 07:50 - Orders/Labs/Meds Orders: Active Orders 24 hr Category Date Time Status CORONAVIRUS COVID-19 PCR [facility] Stat Lab 01/28/20 08:45 Received - Radiology Interpretation Free Text/Narrative:: 29-year-old female presents to the ED for COVID screening. Her boyfriend/live- in partner is ill with upper respiratory tract infection nasal congestion cough. She herself has a mild cough and minimal nasal congestion. She is afebrile. She is eating normally. Clinically she is not exhibiting any signs that would suggest severe COVID illness. COVID screen will be obtained. A two-view chest x-ray will be obtained. Labs will not be done. - Re-Assessments/Exams Free Text/Narrative Re-Assessment/Exam: 01/28/20 10:10 view chest x-ray is completely normal. Patient reassured in this regard. COVID screen should be back tomorrow afternoon. Olegario paula has also been screened for COVID 19. They are to self isolate until they get confirmation of COVID testing. Departure - Departure Time of Disposition: 10:10 Disposition: Home, Self-Care 01 Condition: Fair Clinical Impression: Encounter for screening laboratory testing for COVID-19 virus - Discharge Information *PRESCRIPTION DRUG MONITORING PROGRAM REVIEWED*: Not Applicable Referrals: PCP,None [Primary Care Provider] - Forms: ED Department Discharge Additional Instructions: Evaluation in the emergency room today in regards to request for COVID screening. You have minimal symptoms of nasal could congestion suggesting cold is starting. Subjective shortness of breath although oxygen level is 97% which is normal with respiratory of 16. Two-view chest x-ray is completely normal at this time. Weight screen has been obtained and results should be back tomorrow afternoon. You will be notified through the emergency department physicians. You are to self quarantine until we know for sure the results of your test. Sepsis Event Note (ED) - Evaluation Sepsis Screening Result: No Definite Risk - Focused Exam Vital Signs: Vital Signs Temp Pulse Resp BP Pulse Ox 01/28/20 07:50 36.9 C 68 16 122/61 97 - My Orders Last 24 Hours: My Active Orders 01/28/20 08:45 CORONAVIRUS COVID-19 PCR [facility] Stat - Assessment/Plan Last 24 Hours: My Active Orders 01/28/20 08:45 CORONAVIRUS COVID-19 PCR [facility] Stat
--- NOTE | 2020-01-28 10:01 | CR ---
Chest: PA view of the chest was obtained as well as lateral view. Comparison: Prior chest x-ray of 05/05/16. Heart size and mediastinum are normal. Lungs are clear with no acute parenchymal change. Bony structures appear within normal limits for the patient's age. Impression: 1. Nothing acute is appreciated on 2 view chest x-ray. Diagnostic code #1 This report was dictated in MDT
== END 2020-01-28 10:35 | disposition home or self-care (01) ==
LOC: JD.ED 07:16
DX: R05 Cough (principal); R09.81 Nasal congestion; Z20.828 Contact with and (suspected) exposure to other viral communicable diseases; F41.9 Anxiety disorder, unspecified; F32.9 Major depressive disorder, single episode, unspecified; E66.9 Obesity, unspecified; Z68.41 Body mass index [BMI] 40.0-44.9, adult; Z79.899 Other long term (current) drug therapy
CPT/HCPCS: 71046; 71046-26; 99282; 99283-25; U0002